=== PATIENT | male | born 1955 | race Caucasian/White ===

== ENCOUNTER 2017-03-06 21:02 | Observation (INO) | payer BC ==
--- NOTE | 2017-03-06 22:18 | PDOC ---
History of Present Illness - General History Source: Patient, Old Records Exam Limitations: No Limitations - History of Present Illness Initial Comments: The patient is a 61 year old male with a significant past medical history of NIDDM, HTN, AFIB, hypercholesterolemia, and HLD, who presents to the emergency department today with dizziness and double vision 2 hours ago. The patient states that at 7:30 he was leaving a wake when he began having double vision and dizziness secondary to his double vision. The patient described his double vision as vertical seeing one image on top of another. The patient states that his episode of double vision resolved after 45 seconds and he then went to dinner. The patient states that at the end of dinner he began to feel mildly lightheaded and decided to present. The patient notes that yesterday while babysitting he experienced left sided upper back and neck sharp, radiating pain secondary to a recent left rotator cuff injury. PCP: Dr. Juventino Leigh [phone] CARDIO: Dr. Isidoro Tomas [phone] PAST MEDICAL HISTORY: NIDDM, HTN, AFIB, and HLD PAST SURGICAL HISTORY: No significant history reported FAMILY HISTORY: Former smoker ALLERGIES: As per nursing notes MEDICATIONS: No new medications reported <Danie Weinberg - Last Filed: 03/06/17 23:29> <Shoshana George - Last Filed: 03/07/17 00:39> - General Chief Complaint: Lightheaded Stated Complaint: DIZZINESS Time Seen by Provider: 03/06/17 21:21 NIH Stroke Scale - Last Known Well Date/Time & Onset Date Last Known Well: 03/07/17 Time Last Known Well: 19:30 - Initial Evaluation Level of consciousness: Alert Ask patient the month and their age: Answers both correctly Ask patient to open & close eyes; make fist and let go: Obeys both correctly Best gaze (horizontal eye movement): Normal Visual field testing: No visual field loss Facial paresis (Show teeth/raise eyebrows/close eyes tight): Normal symmetrical movement Motor Function: Left Arm: Normal Motor Function: Right Arm: Normal (extends arm 90 (or 45) degrees for 10 seconds without drift Motor Function: Left Leg: Normal (extends leg 30 degrees for 5 seconds without drift) Motor Function: Right Leg: Normal (extends leg 30 degrees for 5 seconds without drift) Limb Ataxia: No ataxia Sensory(Use pinprick test arms,legs,trunk,face/side to side): Normal Best language (Describe picture, name items, read sentences): No Aphasia Dysarthria (read several words): Normal articulation Extinction and Inattention: No abnormality - Total Score NIH Stroke Scale Score: 0 <Shoshana George - Last Filed: 03/07/17 00:39> tPA Exclusion Checklist 0-3hr - Time Elapsed Date last known well: 03/07/17 Time last known well: 19:30 Elaspsed time: Day(s) and Hour(s) and -1133 Minutes - Thrombolytic Therapy Candidate Is the patient eligible for Thrombolytic Therapy?: No - Exclusion Criteria 0-3hr SBP greater than 185 or DBP greater than 110mmHg despite tx: No Recent IC/spinal surgery,head trauma or stroke w/in last 3mo: No Hx of previous IC hemorrhage, IC neoplasm, AVM or aneurysm: No Active internal bleeding: No Blding diathesis(low plt ct, inc PTT,INR>1.7 or use of NOAC): No Symptoms suggest subarachnoid hemorrhage: No CT demonstrates multilobar infarct(>1/3 cerebral hemiphere): No Arterial puncture at noncompressible site in previous 7 days: No Blood glucose concentration less than 50mg/dL (2.7mmol/L): No - Relative Exclusion Criteria 0-3h Life expectancy <1yr/severe co-morbid illness/SOFT MUD MOLDER on admit: No : No Patient/family refused: No Rapid improvement: Yes Stroke severity too mild: Yes Recent acute VA (w/in previous 3 months): No Seizure at onset with postictal residual neuro impairments: No Major surgery or serious trauma w/in previous 14 days: No - Ineligibility reason(s) Reasons No tPA given: See reason(s) noted above <Shoshana George - Last Filed: 03/07/17 00:39> Past History <Danie Weinberg - Last Filed: 03/06/17 23:29> - Past Medical History Anemia: No Asthma: No Cardiac Disorders: Yes (Paroxismal A-fib,) Diabetes: Yes HTN: Yes Hypercholesterolemia: Yes - Surgical History Abdominal Surgery: No Appendectomy: No Cardiac Surgery: No - Psycho/Social/Smoking Cessation Hx Anxiety: No Suicidal Ideation: No Smoking Status: No Smoking History: Never smoked Number of Cigarettes Smoked Daily: 0 Information on smoking cessation initiated: No Hx Alcohol Use: No Drug/Substance Use Hx: No Substance Use Type: None <Shoshana George - Last Filed: 03/07/17 00:39> - Past Medical History Allergies/Adverse Reactions: Allergies Allergy/AdvReac Type Severity Reaction Status Date / Time Penicillins Allergy Intermediate Verified 03/06/17 21:11 Home Medications: Ambulatory Orders Aspirin [ASA -] 81 mg PO DAILY 02/10/13 Atorvastatin Calcium [Lipitor] 10 mg PO DAILY 02/10/13 Liraglutide [Victoza] 1.2 mg SQ DAILY@0700 02/10/13 Metformin HCl [Glucophage] 1,000 mg PO BID 02/10/13 Quinapril HCl [Accupril] 10 mg PO DAILY 02/10/13 Testosterone [Axiron] 60 mg TD DAILY 08/12/15 Diltiazem HCl [Diltiazem 24Hr ER] 180 mg PO AM 03/06/17 Metoprolol Succinate [Toprol Xl] 50 mg PO HS 03/06/17 Ranitidine HCl [Zantac] 150 mg PO BID 03/06/17 Tadalafil [Cialis] 5 mg PO DAILY 03/06/17 Review of Systems - Review of Systems Able to Perform ROS?: Yes Comments:: GENERAL/CONSTITUTIONAL: No fever or chills. No weakness. HEAD, EYES, EARS, NOSE AND THROAT: (+) Double vision. No ear pain or discharge. No sore throat. GASTROINTESTINAL: No nausea, vomiting, diarrhea or constipation. GENITOURINARY: No dysuria, frequency, or change in urination. CARDIOVASCULAR: No chest pain or shortness of breath. RESPIRATORY: No cough, wheezing, or hemoptysis. MUSCULOSKELETAL: (+) Left upper back pain. Left sided neck pain. SKIN: No rash NEUROLOGIC: (+) Dizziness. No headache, vertigo, loss of consciousness, or change in strength/sensation. ENDOCRINE: No increased thirst. No abnormal weight change. HEMATOLOGIC/LYMPHATIC: No anemia, easy bleeding, or history of blood clots. ALLERGIC/IMMUNOLOGIC: No hives or skin allergy. <Danie Weinberg - Last Filed: 03/06/17 23:29> *Physical Exam - Vital Signs Last Vital Signs Temp Pulse Resp BP Pulse Ox 97.7 F 74 20 124/89 97 03/06/17 21:12 03/06/17 21:12 03/06/17 21:12 03/06/17 21:12 03/06/17 21:12 - Physical Exam Comments: GENERAL: Awake, alert, and fully oriented, in no acute distress HEAD: No signs of trauma EYES: PERRLA, EOMI, sclera anicteric, conjunctiva clear. Extraocular movements intact ENT: Auricles normal inspection, nares patent, Moist mucosa NECK: Normal ROM, supple, no lymphadenopathy, JVD, or masses LUNGS: Breath sounds equal, clear to auscultation bilaterally. No wheezes, and no crackles HEART: Regular rate and rhythm, normal S1 and S2, no murmurs, rubs or gallops ABDOMEN: Soft, nontender, normoactive bowel sounds. No guarding, no rebound. No masses EXTREMITIES: Normal range of motion, no edema. No clubbing or cyanosis. No cords, erythema, or tenderness NEUROLOGICAL: Normal speech. 5/5 strength in all extremities. Cranial nerves intact. SKIN: Warm, Dry, normal turgor, no rashes or lesions noted. <Danie Weinberg - Last Filed: 03/06/17 23:29> - Vital Signs Last Vital Signs Temp Pulse Resp BP Pulse Ox 97.7 F 74 20 124/89 97 03/06/17 21:12 03/06/17 21:12 03/06/17 21:12 03/06/17 21:12 03/06/17 21:12 <Shoshana George - Last Filed: 03/07/17 00:39> Heart Score/ECG Review #1 General ECG Interpretation: Sinus Rhythm, Normal Rate (74), Normal Intervals, No acute ischemic changes Compared to previous ECG there are: No significant change (comparison 08/12/15) 03/06/17 22:48 RBB old, normal axis. TWI v1 - V2. <Shoshana George - Last Filed: 03/07/17 00:39> ED Treatment Course - LABORATORY CBC & Chemistry Diagram: 03/06/17 22:08 03/06/17 22:08 - RADIOLOGY Radiograph Interpretation: EXAM#: TYPE/EXAM: RESULT: [id number] CT/HEAD CT (STROKE) Diplopia. Rule out stroke. CT scan of the brain without intravenous contrast No prior is available for comparison. There is mild volume loss mainly in the high convexity. The ventricles and basal cisterns appear unremarkable. No mass lesion, gross acute infarct or intracranial hemorrhage is identified. There is no shift of the midline structures. The craniocervical junction appears unremarkable. Calvarium is intact. Mild deviation of the nasal septum to the left. Impression: Mild volume loss mainly in the high convexity without gross evidence of acute intracranial pathology. Correlate clinically to determine further evaluation and follow-up. Reported By: Sim Brady MD 03/06/170 EXAM#: TYPE/EXAM: RESULT: [id number] RAD/CHEST X-RAY PORTABLE* Change in mental status. Rule out aspiration/infection Portable chest x-ray AP sitting. Since , the cardiac silhouette remains within normal limits in size. The lung is clear. Mild elevation of the right hemidiaphragm. Mediastinum is osseous osseous structures appear intact Impression: No acute cardiopulmonary disease is present Reported By: Sim Brady MD 03/06/17 3146 <Danie Weinberg - Last Filed: 03/06/17 23:29> - LABORATORY CBC & Chemistry Diagram: 03/06/17 22:08 03/06/17 22:08 - RADIOLOGY Radiology Studies Ordered: Category Date Time Status HEAD CT (STROKE) [CT] Stat CT Scan 03/06/17 21:46 Taken CHEST X-RAY PORTABLE* [RAD] Stat Radiology 03/06/17 21:47 Ordered <Shoshana George - Last Filed: 03/07/17 00:39> Medical Decision Making - Medical Decision Making 03/06/17 22:[address] Rodriguez [phone]. Case discussed. 03/06/17 22:[address] Anatoliy mello ([phone]. Unable to reach call center 03/06/17 23:[address] Sheikh mello, Dr. Martinez is documentation supervisor. Awaiting call back. 03/06/17 23:[address] Anatoliy mello. Dr. Marcelo is documentation supervisor. <Danie Weinberg - Last Filed: 03/06/17 23:29> - Medical Decision Making 03/06/17 22:10 61 yo M with ho HTN, afib, HlD, DM here with c/o episode of double vision and feeling lightheaded. pt was leaving a wake, around 7:30, lasted around 45 seconds then resolved. later was eating dinner, and felt lightheaded. denies vertigo, no sense of imbalance. no vision change.s no cp or sob. yesterday had episdoe of left shoulder pain ,back pain lasted briefly then spontaneously resolved. no numbness or tingling. no leg swelling. no current chest pain. no change to speech, sxs completely resolve. no prior mi or cva. father with [facility] in 60's. pt had a stress test 1 yr ago. on exam awake alert, facies and pupils symmetric vision normal. visual victor intact. EOMI, CN intact. strength 5/5 throught. intact sensation to light tough. speech clear. NIH stroke scale zero. cardiac and lung exam normal. symmetric pulses. abd soft no pulsatile mass. plan: differential: diplopia from palsy, cva, electrolyte abnormality, mi, dysrythmia, plna ekg ct head. will call code keyes/ stroke. although not TPA candidate as sxs completely resolved. will d/w nuerology 03/06/17 23:32 d/w dr fuentes, ( covering for dr levine) who states admi to hospitalist. paged dr martinez covering for dr. rosario, no call back . will admit to tele hopsitalist. d/w nuerologist who recommend mri/ mra. <Shoshana George - Last Filed: 03/07/17 00:39> *DC/Admit/Observation/Transfer - Attestations Scribe Attestion: Documentation prepared by Danie Weinberg, acting as biomedical engineering director for Shoshana George MD. <Danie Weinberg - Last Filed: 03/06/17 23:29> - Discharge Dispostion Admit: Yes <Shoshana George - Last Filed: 03/07/17 00:39> Diagnosis at time of Disposition: Diplopia - Referrals Referrals: Juventino Leigh MD [Primary Care Provider] -
[2017-03-06 22:26] LABS: BASOPHIL 0.7 % (0-2.0); EOSINOPHIL 2.4 % (0-4.5); MCHC 33.3 g/dl (32.0-35.9); MEAN CELL VOLUME 93.1 fl (80-96); NEUTROPHILS 68.8 % (42.8-82.8); PLATELET COUNT 189 K/MM3 (134-434); WHITE BLOOD COUNT 8.8 K/mm3 (4.0-10.0)
[2017-03-06 22:36] LABS: INR 1.2 (0.82-1.09); PROTHROMBIN TIME (PATIENT) 13.2 SEC (9.98-11.88)
[2017-03-06] MEDS ORDERED: ASPIRIN 81 MG CHEWABLE TABLETS PO ONE (22:36)
[2017-03-06 22:55] LABS: ANION GAP 9 (8-16); BILIRUBIN,TOTAL 0.5 mg/dL (0.2-1.0); CALCIUM 9.8 mg/dL (8.5-10.1); CO2 27 mmol/L (21-32); COCKROFT - GAULT 124.42; CREATININE 0.9 mg/dL (0.7-1.3); GLUCOSE,RANDOM 143 mg/dL (74-106); SGOT/AST 16 U/L (15-37); SGPT/ALT 19 U/L (12-78); TOT PROT 6.8 g/dl (6.4-8.2)
[2017-03-06 22:57] LABS: ALK PHOS 65 U/L (45-117); TROPONIN I 0.02 ng/ml (0.00-0.05)
[2017-03-06] MEDS ORDERED: ASPIRIN 81 MG CHEWABLE TABLETS ONE (22:57)
--- NOTE | 2017-03-06 23:54 | PN ---
<Hailey Capone - Last Filed: 03/06/17 23:53> Teaching Attending Note Name of Resident: Kayla Chappellhouston <Amna Baker - Last Filed: 03/07/17 01:28> Teaching Attending Note ATTENDING PHYSICIAN STATEMENT I saw and evaluated the patient. I reviewed the resident's note and discussed the case with the resident. I agree with the resident's findings and plan as documented. SUBJECTIVE: 61 yo M presents with dizziness and double vision. Patient reports walking out his front door and feeling disoriented and experiencing double vision for 45 seconds. Patient states he is studying for an exam and spends 4 hours at a time looking at a computer screen. Patient reports proceeding to go to dinner started to feel lightheaded. Upon evaluation pt states he feels asymptomatic. Pt notes he is chronically congested. Patient reports using afrin before bed to decongest. Pt denies trauma to the head, ringing to the ears, decreased hearing , fevers, chills. PMHx: NIDDM, HTN, AFIB, HLD, and HLD OBJECTIVE: Last Vital Signs Temp Pulse Resp BP Pulse Ox 97.7 F 72 16 118/62 100 03/07/17 00:29 03/07/17 00:29 03/07/17 00:29 03/07/17 00:29 03/07/17 01:11 GENERAL: Awake, alert, and fully oriented, in no acute distress HEENT: Atraumatic. PERRLA, EOMI. Moist mucosa. No JVD LUNGS: No distress, speaks full sentences, clear to auscultation bilaterally HEART: Regular rate and rhythm, normal S1 and S2, no murmurs, rubs or gallops, peripheral pulses normal and equal bilaterally. ABDOMEN: Soft, nontender, normoactive bowel sounds. No guarding, no rebound. No masses EXTREMITIES: Normal inspection, Normal range of motion, no edema. No clubbing or Cyanosis. NEUROLOGICAL: Cranial nerves II through XII grossly intact. Normal speech, gait not assessed, no focal sensorimotor deficits SKIN: Warm, Dry, normal turgor, no rashes or lesions noted. CBCD WBC 8.8 K/mm3 (4.0-10.0) D 03/06/17 22:08 RBC 4.21 M/mm3 (4.00-5.60) 03/06/17 22:08 Hgb 13.1 GM/dL (11.7-16.9) 03/06/17 22:08 Hct 39.2 % (35.4-49) 03/06/17 22:08 MCV 93.1 fl (80-96) 03/06/17 22:08 MCHC 33.3 g/dl (32.0-35.9) 03/06/17 22:08 RDW 13.0 % (11.9-15.9) 03/06/17 22:08 Plt Count 189 K/MM3 (134-434) 03/06/17 22:08 MPV 8.0 fl (7.5-11.1) 03/06/17 22:08 CMP Sodium 141 mmol/L (136-145) 03/06/17 22:08 Potassium 4.3 mmol/L (3.5-5.1) 03/06/17 22:08 Chloride 105 mmol/L (98-107) 03/06/17 22:08 Carbon Dioxide 27 mmol/L (21-32) 03/06/17 22:08 Anion Gap 9 (8-16) 03/06/17 22:08 BUN 23 mg/dL (7-18) H D 03/06/17 22:08 Creatinine 0.9 mg/dL (0.7-1.3) D 03/06/17 22:08 Creat Clearance w eGFR > 60 (>60) 03/06/17 22:08 Calcium 9.8 mg/dL (8.5-10.1) 03/06/17 22:08 Total Bilirubin 0.5 mg/dL (0.2-1.0) D 03/06/17 22:08 AST 16 U/L (15-37) D 03/06/17 22:08 ALT 19 U/L (12-78) 03/06/17 22:08 Alkaline Phosphatase 65 U/L (45-117) 03/06/17 22:08 Total Protein 6.8 g/dl (6.4-8.2) 03/06/17 22:08 Albumin 4.0 g/dl (3.4-5.0) 03/06/17 22:08 ASSESSMENT AND PLAN: Diplopia r/o CVA/TIA r/o Cranial nerve palsy - Aspirin 325 -Opthamology consult -Neurology consult -Hgb A1C -Lipid panel -TSH -diabetic diet -sliding scale -MRI pending Neuro consult Documentation is prepared by Amna Baker acting as center medical and lab director for Hailey Capone M.D.
--- NOTE | 2017-03-07 01:08 | HP ---
CHIEF COMPLAINT: Blurry vision PCP: Dr. Leigh HISTORY OF PRESENT ILLNESS: 61 year old male with a significant PMHx DM and paroxysmal atrial fibrillation, presents to the emergency room with blurry vision. Patient states that earlier this evening he was walking out of a when he become dizzy and saw double of his and son who were standing in front of him. Patient states that this episode lasted less than one minute. He did not have any associated symptoms, denies chest pain, shortness of breath, palpitations, LOC. A few hours later, patient ate dinner, and felt a little dizzy, which provoked him to come to the ER. Patient states that earlier that day he was fishing all day, he had three beers and a sandwich. Patient states that he had two previous episodes of blurry vision while in [place] back in September and one in December while driving. He denies floaters, curtain pulled over eyes, headaches. He also states that he has been at the computer 3-4 hrs at a time some days, but not everyday. He has not visited optho in over one year. 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 Patient follows saw operator for diabetes, last known hemoglobin A1C 6.6 few months ago. He does not check his sugars daily. He has not checked his sugars in a few days. OF note patient also complained of left neck pain last night that resolved , he has HX of rotator cuff tear. In the ER, stroke protocol was initiated. Head CT was negative for acute pathology. Aspirin given. First cardiac profile was negative. EKG unchanged form previous, NSR, chronic RBBB. CXR, no acute/cardio pulmonary pathology. Recent Travel: no PAST MEDICAL HISTORY: Diabetes Mellitus, Atrial fibrillation, HTN, HLD PAST SURGICAL HISTORY: Social History: Smoking:quit years ago Alcohol:social Drugs: no Family History: Allergies Penicillins Allergy (Intermediate, Verified 03/06/17 21:11) HOME MEDICATIONS: Home Medications Medication Instructions Recorded Aspirin [ASA -] 81 mg PO DAILY 02/10/13 Atorvastatin Calcium [Lipitor] 10 mg PO DAILY 02/10/13 Liraglutide [Victoza] 1.2 mg SQ DAILY@0700 02/10/13 Metformin HCl [Glucophage] 1,000 mg PO BID 02/10/13 Quinapril HCl [Accupril] 10 mg PO DAILY 02/10/13 Testosterone [Axiron] 60 mg TD DAILY 08/12/15 Diltiazem HCl [Diltiazem 24Hr ER] 180 mg PO AM 03/06/17 Metoprolol Succinate [Toprol Xl] 50 mg PO HS 03/06/17 Ranitidine HCl [Zantac] 150 mg PO BID 03/06/17 Tadalafil [Cialis] 5 mg PO DAILY 03/06/17 REVIEW OF SYSTEMS CONSTITUTIONAL: Absent: fever, chills, diaphoresis, generalized weakness, malaise, loss of appetite, weight change HEENT: Positive:visual changes, blurry vision, double vision Absent: rhinorrhea, nasal congestion, throat pain, throat swelling, difficulty swallowing, mouth swelling, ear pain, eye pain, CARDIOVASCULAR: Absent: chest pain, syncope, palpitations, irregular heart rate, lightheadedness , peripheral edema RESPIRATORY: Absent: cough, shortness of breath, dyspnea with exertion, orthopnea, wheezing, stridor, hemoptysis GASTROINTESTINAL: Absent: abdominal pain, abdominal distension, nausea, vomiting, diarrhea, constipation, melena, hematochezia GENITOURINARY: Absent: dysuria, frequency, urgency, hesitancy, hematuria, flank pain, genital pain MUSCULOSKELETAL: POsitive: back pain/neck pain Absent: myalgia, arthralgia, joint swelling, SKIN: Absent: rash, itching, pallor HEMATOLOGIC/IMMUNOLOGIC: Absent: easy bleeding, easy bruising, lymphadenopathy, frequent infections ENDOCRINE: Absent: unexplained weight gain, unexplained weight loss, heat intolerance, cold intolerance NEUROLOGIC: Postive : dizziness Absent: headache, focal weakness or paresthesias, , unsteady gait, seizure, mental status changes, bladder or bowel incontinence PSYCHIATRIC: Absent: anxiety, depression, suicidal or homicidal ideation, hallucinations. PHYSICAL EXAMINATION Vital Signs - 24 hr 03/06/17 03/07/17 21:12 00:29 Temperature 97.7 F 97.7 F Pulse Rate 74 Pulse Rate [ 72 Apical] Respiratory 20 16 Rate Blood Pressure 124/89 Blood Pressure 118/62 [Left] O2 Sat by Pulse 97 100 Oximetry (%) GENERAL: Awake, alert, and fully oriented, in no acute distress. HEAD: Normal with no signs of trauma. EYES: Pupils equal, round and reactive to light, extraocular movements intact, sclera anicteric, conjunctiva clear. No lid lag. EARS, NOSE, THROAT: Ears normal, nares patent, oropharynx clear without exudates. Moist mucous membranes. NECK: Normal range of motion, supple without lymphadenopathy, JVD, or masses. LUNGS: Breath sounds equal, clear to auscultation bilaterally. No wheezes, and no crackles. No accessory muscle use. HEART: Regular rate and rhythm, normal S1 and S2 without murmur, rub or gallop. ABDOMEN: Soft, nontender, not distended, normoactive bowel sounds, no guarding, no rebound, no masses. No hepatomegaly or splenomegaly. MUSCULOSKELETAL: Normal range of motion at all joints. No bony deformities or tenderness. No CVA tenderness. UPPER EXTREMITIES: 2+ pulses, warm, well-perfused. No cyanosis. No clubbing. No peripheral edema. LOWER EXTREMITIES: 2+ pulses, warm, well-perfused. No calf tenderness. No peripheral edema. NEUROLOGICAL: Cranial nerves II-XII intact. Normal speech. Normal gait. PSYCHIATRIC: Cooperative. Good eye contact. Appropriate mood and affect. SKIN: Warm, dry, normal turgor, no rashes or lesions noted, normal capillary refill. CBCD WBC 8.8 K/mm3 (4.0-10.0) D 03/06/17 22:08 RBC 4.21 M/mm3 (4.00-5.60) 03/06/17 22:08 Hgb 13.1 GM/dL (11.7-16.9) 03/06/17 22:08 Hct 39.2 % (35.4-49) 03/06/17 22:08 MCV 93.1 fl (80-96) 03/06/17 22:08 MCHC 33.3 g/dl (32.0-35.9) 03/06/17 22:08 RDW 13.0 % (11.9-15.9) 03/06/17 22:08 Plt Count 189 K/MM3 (134-434) 03/06/17 22:08 MPV 8.0 fl (7.5-11.1) 03/06/17 22:08 CMP Sodium 141 mmol/L (136-145) 03/06/17 22:08 Potassium 4.3 mmol/L (3.5-5.1) 03/06/17 22:08 Chloride 105 mmol/L (98-107) 03/06/17 22:08 Carbon Dioxide 27 mmol/L (21-32) 03/06/17 22:08 Anion Gap 9 (8-16) 03/06/17 22:08 BUN 23 mg/dL (7-18) H D 03/06/17 22:08 Creatinine 0.9 mg/dL (0.7-1.3) D 03/06/17 22:08 Creat Clearance w eGFR > 60 (>60) 03/06/17 22:08 Random Glucose 143 mg/dL (74-106) H D 03/06/17 22:08 Calcium 9.8 mg/dL (8.5-10.1) 03/06/17 22:08 Total Bilirubin 0.5 mg/dL (0.2-1.0) D 03/06/17 22:08 AST 16 U/L (15-37) D 03/06/17 22:08 ALT 19 U/L (12-78) 03/06/17 22:08 Alkaline Phosphatase 65 U/L (45-117) 03/06/17 22:08 Total Protein 6.8 g/dl (6.4-8.2) 03/06/17 22:08 Albumin 4.0 g/dl (3.4-5.0) 03/06/17 22:08 CARDIAC ENZYMES Creatine Kinase 55 IU/L (39-308) 03/06/17 22:08 Troponin I 0.02 ng/ml (0.00-0.05) 03/06/17 22:08 Current Medications Generic Name Dose Route Start Last Admin Trade Name Homero PRN Reason Stop Dose Admin Aspirin 81 mg 03/07/17 10:00 Asa - PO DAILY [facility] Atorvastatin Calcium 10 mg 03/07/17 22:00 Lipitor - PO HS JEFF Diltiazem HCl 180 mg 03/07/17 10:00 Cardizem Cd - PO DAILY [facility] Heparin Sodium (Porcine) 5,000 unit 03/07/17 02:00 03/07/17 01:28 Heparin - SQ 5,000 unit Q8H-IV JEFF Administration Insulin Aspart 1 vial 03/07/17 07:00 Novolog Vial Sliding Scale - SQ ACHS [facility] Protocol Liraglutide 1.2 mg 03/07/17 07:00 Victoza - SQ DAILY@0700 [facility] Metoprolol Succinate 50 mg 03/07/17 22:00 Toprol Xl - PO HS JEFF Quinapril HCl 10 mg 03/07/17 10:00 Accupril - PO DAILY JEFF Ranitidine HCl 150 mg 03/07/17 10:00 Zantac - PO BID [facility] ASSESSMENT/PLAN: 61 year old male with a significant past medical history of NIDDM, paroxysmal atrial fibrillation, presents to the ER with diplopia and dizziness. Patient admitted to obs tele r/o stroke/tia. #r/o stroke /tia -stoke protocol activated -stat head CT negative -ASA 324mg given -continue aspirin 81mg po daily -continue statin -MRA/MRI brain -carotid Doppler -echo -TSH -lipid panel -neurology consulted #diplopia: -multiple etiologies; possible TIA; could be secondary to computer; diabetes, age; ? -appreciate ophthalmology consult #paroxysmal a fib -cardizem 180mg po daily -currently in NSR; rate controlled #diabetes mellitus type II: -Insulin SS; BG achs -hemoglobin A1c #HTN -metoprolol succinate 50mg po HS #HLD -Lipitor 10mg po qd #GERD: -zantac #BPH: -cont home meds FEN: Fluids: po Electrolytes: WNL Diet: Diabetic diet VTE prophylaxis: heparin sq Disposition: obs tel/ f/u studies/ appreciate consults Problem List - Problem (1) Diplopia Code(s): H53.2 - DIPLOPIA (2) Hyperlipidemia Code(s): E78.5 - HYPERLIPIDEMIA, UNSPECIFIED Qualifiers: Hyperlipidemia type: Pure hypercholesterolemia (3) Hypertension Code(s): I10 - ESSENTIAL (PRIMARY) HYPERTENSION Qualifiers: Hypertension type: essential hypertension Qualified Code(s): I10 - Essential (primary) hypertension (4) Near syncope Code(s): R55 - SYNCOPE AND COLLAPSE (5) Paroxysmal atrial fibrillation Code(s): I48.0 - PAROXYSMAL ATRIAL FIBRILLATION (6) Type 2 diabetes mellitus Code(s): E11.9 - TYPE 2 DIABETES MELLITUS WITHOUT COMPLICATIONS Qualifiers: Diabetes mellitus complication status: without complication (7) BPH (benign prostatic hyperplasia) Code(s): N40.0 - BENIGN PROSTATIC HYPERPLASIA WITHOUT LOWER URINRY TRACT SYMP Visit type - Emergency Visit Emergency Visit: Yes ED Registration Date: 03/07/17 Care time: The patient presented to the Emergency Department on the above date and was hospitalized for further evaluation of their emergent condition. - New Patient This patient is new to me today: Yes Date on this admission: 03/07/17 - Critical Care Critical Care patient: No
[2017-03-07] MEDS: HEPARIN NA (PORCINE) 5,000 UNITS/ML 1ML VIAL SQ SCH ×3 (01:28→17:38)
[2017-03-07 05:25] VITALS: BMI 30.2
[2017-03-07] MEDS: INSULIN SLIDING SCALE (NOVOLOG) 1 VIAL SQ SCH ×4 (06:54→22:11)
[2017-03-07] MEDS ORDERED: LIRAGLUTIDE 0.6 MG/0.1 ML PEN.INJCTR SQ SCH (07:00)
[2017-03-07] MEDS: QUINAPRIL HCL 10 MG TABLET (FP) PO SCH (09:55)
[2017-03-07] MEDS: RANITIDINE HCL 150 MG TABLET (FP) PO SCH ×2 (09:56→22:10)
[2017-03-07] MEDS: ASPIRIN 81 MG CHEWABLE TABLETS PO SCH (09:56)
--- NOTE | 2017-03-07 10:01 | EKG ---
Test Reason : Blood Pressure : / mmHG Vent. Rate : 074 BPM Atrial Rate : 074 BPM P-R Int : 172 ms QRS Dur : 144 ms QT Int : 408 ms P-R-T Axes : 046 -10 018 degrees QTc Int : 452 ms NORMAL SINUS RHYTHM RIGHT BUNDLE BRANCH BLOCK ABNORMAL ECG WHEN COMPARED WITH ECG OF 12-AUG-2015 10:34, PREMATURE SUPRAVENTRICULAR COMPLEXES ARE NO LONGER PRESENT Confirmed by ANDREY OLIVO MD ([id number]) on 03/07/2017 10:01:39 AM Referred By: Confirmed By:ANDREY OLIVO MD
--- NOTE | 2017-03-07 12:42 | PN ---
Teaching Attending Note Name of Resident: Caleb Nath ATTENDING PHYSICIAN STATEMENT I saw and evaluated the patient. I reviewed the resident's note and discussed the case with the resident. I agree with the resident's findings and plan as documented. SUBJECTIVE: Patient has no complaints. No further visual changes. OBJECTIVE: Vital Signs Period Temp Pulse Resp BP Sys/Smith Pulse Ox Last 24 Hr 97.7 F-98.1 F 70-74 16-20 108-124/62-89 97-100 HEART: S1 S2, RRR LUNGS: Clear ABDOMEN: Soft, non-tender, non-distended, normal BS EXTREMITIES: No edema NEUROLOGICAL: Non-focal ASSESSMENT AND PLAN: This is a 61 year old man with a history of type 2 DM, PAF, HTN, hyperlipidemia , GERD, BPH who presented to the ER with diplopia and dizziness. 1. Diplopia, possible TIA - Awaiting neurology, cardiology, ophthalmology evaluations - Carotid dopplers negative - Echo pending - MRI/MRA of brain pending 2. Paroxysmal atrial fibrillation - Currently in SR - Continue Cardizem CD 3. Type 2 diabetes mellitus - Continue Victoza, Novolog sliding scale 4. HTN - Continue Cardizem CD, Toprol XL, Accupril 5. Hyperlipidemia - Continue Lipitor 6. GERD - Continue Zantac 7. BPH
--- NOTE | 2017-03-07 12:59 | PN ---
Physical Exam: SUBJECTIVE: Stated his vision has been normal since admission. No other complaints. OBJECTIVE: Vital Signs Period Temp Pulse Resp BP Sys/Smith Pulse Ox Last 24 Hr 97.7 F-98.1 F 70-72 16-20 108-116/68-70 100-100 GENERAL: AAOx3, in no acute distress. HEAD: AC, NT EYES: PERRLA, sclera anicteric, conjunctiva clear. No ptosis. ENT: oropharynx clear without exudates, moist mucous membranes. LUNGS: CTAB HEART: RRR, S1, S2 without murmur, rub or gallop. ABDOMEN: Soft, nontender, nondistended, normoactive bowel sounds, no guarding, no rebound, no hepatosplenomegaly, no masses. NEUROLOGICAL: Cranial nerves II through XII grossly intact. Normal speech, gait not observed. CBCD WBC 8.8 K/mm3 (4.0-10.0) D 03/06/17 22:08 RBC 4.21 M/mm3 (4.00-5.60) 03/06/17 22:08 Hgb 13.1 GM/dL (11.7-16.9) 03/06/17 22:08 Hct 39.2 % (35.4-49) 03/06/17 22:08 MCV 93.1 fl (80-96) 03/06/17 22:08 MCHC 33.3 g/dl (32.0-35.9) 03/06/17 22:08 RDW 13.0 % (11.9-15.9) 03/06/17 22:08 Plt Count 189 K/MM3 (134-434) 03/06/17 22:08 MPV 8.0 fl (7.5-11.1) 03/06/17 22:08 CMP Sodium 141 mmol/L (136-145) 03/06/17 22:08 Potassium 4.3 mmol/L (3.5-5.1) 03/06/17 22:08 Chloride 105 mmol/L (98-107) 03/06/17 22:08 Carbon Dioxide 27 mmol/L (21-32) 03/06/17 22:08 Anion Gap 9 (8-16) 03/06/17 22:08 BUN 23 mg/dL (7-18) H D 03/06/17 22:08 Creatinine 0.9 mg/dL (0.7-1.3) D 03/06/17 22:08 Creat Clearance w eGFR > 60 (>60) 03/06/17 22:08 Calcium 9.8 mg/dL (8.5-10.1) 03/06/17 22:08 Total Bilirubin 0.5 mg/dL (0.2-1.0) D 03/06/17 22:08 AST 16 U/L (15-37) D 03/06/17 22:08 ALT 19 U/L (12-78) 03/06/17 22:08 Alkaline Phosphatase 65 U/L (45-117) 03/06/17 22:08 Total Protein 6.8 g/dl (6.4-8.2) 03/06/17 22:08 Albumin 4.0 g/dl (3.4-5.0) 03/06/17 22:08 Active Medications Generic Name Dose Route Start Last Admin Trade Name Freq PRN Reason Stop Dose Admin Aspirin 81 mg 03/07/17 10:00 03/07/17 09:56 Asa - PO 81 mg DAILY JEFF Administration Atorvastatin Calcium 10 mg 03/07/17 22:00 Lipitor - PO HS JEFF Diltiazem HCl 180 mg 03/07/17 10:00 03/07/17 09:56 Cardizem Cd - PO 180 mg DAILY JEFF Administration Heparin Sodium (Porcine) 5,000 unit 03/07/17 02:00 03/07/17 09:56 Heparin - SQ 5,000 unit Q8H-IV JEFF Administration Insulin Aspart 1 vial 03/07/17 07:00 03/07/17 12:11 Novolog Vial Sliding Scale - SQ Not Given ACHS [facility] Protocol Liraglutide 1.2 mg 03/07/17 07:00 03/07/17 06:55 Victoza - SQ Not Given DAILY@0700 JEFF Metoprolol Succinate 50 mg 03/07/17 22:00 Toprol Xl - PO HS JEFF Quinapril HCl 10 mg 03/07/17 10:00 03/07/17 09:55 Accupril - PO 10 mg DAILY JEFF Administration Ranitidine HCl 150 mg 03/07/17 10:00 03/07/17 09:56 Zantac - PO 150 mg BID JEFF Administration IMAGING Carotid doppler on 6/9: no stenosis CXR on 03/06: no acute pathology CT head on 03/06: no stroke ASSESSMENT/PLAN: 61 yo M h/o NIDDM and paroxysmal atrial fibrillation admitted to telemetry for double vision. Diplopia - Stroke vs. eye strain vs. diabetic retinopathy * Stroke work up negative so far * Pending ECHO and MRI * Pending TSH and lipid panel * Cont. statin and asa * Ophthalmology follow up as outpatient A-fib, paroxysmal - Rate and rhythm controlled - Cont. asa and cardizem NIDDM - BGM and sliding scale - Pending a1c HTN - Controlled on metoprolol HLD - Cont. lipitor - Pending lipid panel but can be done as outpatient FEN - IVF not indicated - Lytes normal - DM diet Prophylaxis - DVT: heparin SQ - GI: not indicated Dispo - Discharge once seen by neurology - MRI brain, lipid panel, A1C can be done as outpatient Visit type - Emergency Visit Emergency Visit: No - New Patient This patient is new to me today: No - Critical Care Critical Care patient: No
--- NOTE | 2017-03-07 13:46 | CON.CARD ---
Consult Consult Specialty:: Cardiology Referred by:: Juventino Leigh MD Reason for Consultation:: PAF->SR - History of Present Illness Chief Complaint: Diplopia, dizziness History of Present Illness: This is a 61-year-old male with a history of an NIDDM, HTN, HLD, vagally- mediated PAF->SR [id number], PAC presented for dizziness and diplopia ( unclear whether monocular or binocular) since resolved. He denies chest pain, dyspnea, palpitations, true syncope, orthopnea, PND or LE edema, currently asymptomatic. PCP: Dr. Leigh Livestock Breeder: Dr. Tomas - History Source History Provided By: Patient Limitations to Obtaining History: No Limitations - Past Medical History Cardio/Vascular: Yes: AFIB, HTN, Hyperlipdemia Endocrine: Yes: Diabetes Mellitus - Alcohol/Substance Use Hx Alcohol Use: No History of Substance Use: reports: None - Smoking History Smoking history: Former smoker Have you smoked in the past 12 months: No Aproximately how many cigarettes per day: 0 If you are a former smoker, when did you quit?: 30 years ago - Social History History of Recent Travel: No Home Medications - Allergies Allergies/Adverse Reactions: Allergies Allergy/AdvReac Type Severity Reaction Status Date / Time Penicillins Allergy Intermediate Verified 03/06/17 21:11 - Home Medications Home Medications: Ambulatory Orders Aspirin [ASA -] 81 mg PO DAILY 02/10/13 Atorvastatin Calcium [Lipitor] 10 mg PO DAILY 02/10/13 Liraglutide [Victoza] 1.2 mg SQ DAILY@0700 02/10/13 Metformin HCl [Glucophage] 1,000 mg PO BID 02/10/13 Quinapril HCl [Accupril] 10 mg PO DAILY 02/10/13 Testosterone [Axiron] 60 mg TD DAILY 08/12/15 Diltiazem HCl [Diltiazem 24Hr ER] 180 mg PO AM 03/06/17 Metoprolol Succinate [Toprol Xl] 50 mg PO HS 03/06/17 Ranitidine HCl [Zantac] 150 mg PO BID 03/06/17 Tadalafil [Cialis] 5 mg PO DAILY 03/06/17 Review of Systems - Review of Systems Eyes: reports: Double Vision Neurological: reports: Dizziness Vital Signs: Vital Signs Temperature 98.1 F 03/07/17 10:00 Pulse Rate 70 03/07/17 10:00 Respiratory Rate 20 03/07/17 10:00 Blood Pressure 108/68 03/07/17 10:00 O2 Sat by Pulse Oximetry (%) 100 03/07/17 01:30 Constitutional: Yes: No Distress, Calm Neck: Yes: Supple Respiratory: Yes: Regular, CTA Bilaterally Gastrointestinal: Yes: Normal Bowel Sounds, Soft Cardiovascular: Yes: Regular Rate and Rhythm JVD: No Carotid Bruit: No Heart Sounds: Yes: S1, S2 Edema: No - Other Data Labs, Other Data: INR, PTT INR 1.20 (0.82-1.09) H 03/06/17 22:08 NSR RBBB similar to previous Tele: NSR, no recurrence PAF Imaging - Results Chest X-ray: Report Reviewed Problem List - Problems (1) Diplopia Code(s): H53.2 - DIPLOPIA (2) Hyperlipidemia Code(s): E78.5 - HYPERLIPIDEMIA, UNSPECIFIED Qualifiers: Hyperlipidemia type: pure hypercholesterolemia Qualified Code(s): E78.00 - Pure hypercholesterolemia, unspecified; E78.0 - Pure hypercholesterolemia (3) Hypertension Code(s): I10 - ESSENTIAL (PRIMARY) HYPERTENSION Qualifiers: Hypertension type: essential hypertension Qualified Code(s): I10 - Essential (primary) hypertension (4) Paroxysmal atrial fibrillation Code(s): I48.0 - PAROXYSMAL ATRIAL FIBRILLATION (5) Premature atrial beats Code(s): I49.1 - ATRIAL PREMATURE DEPOLARIZATION (6) Type 2 diabetes mellitus Code(s): E11.9 - TYPE 2 DIABETES MELLITUS WITHOUT COMPLICATIONS Qualifiers: Diabetes mellitus complication status: without complication Diabetes mellitus usp insulin use: without bed bug exterminator use Qualified Code(s): E11.9 - Type 2 diabetes mellitus without complications Assessment/Plan 03/07/2017 Echo: Normal biventricular size and fxn, mild TR 1. Diplopia, light-headedness, r/o TIA 2. H/o premature atrial contraction, PAF->SR 3. Hypertension 4. Type 2 DM 5. Hyperlipidemia P:1. Continue Cardizem CD 180 qd, Toprol 50 qhs, ASA 81 qd, Lipitor 10 qd, Accupril 10 qd, may need NOAC if cerebrovascular disease is confirmed 2. Await neuro input 3. Thank you for consultative opportunity
--- NOTE | 2017-03-07 16:24 | CONSULT ---
Consult - text type - Consultation Consultation Note: Ophthalmology consult 61 year old male c/o 30-second episode of vertical diplopia yesterday along with dizziness. Pt reports prior episodes of dizziness due to congestion from seasonal allergies, but has never had diplopia vision, near with reading glasses OD 20/50+2, OS 20/50+2, OU 20/30 P3/3 --> 3+/3+, no APD EOM full OU ortho at distance, no evidence of strabismus on exam PLE LLL flat S/C no injection K clear OU A/C formed I round Imp/Plan Transient episode of diplopia with no findings of EOM palsy or strabismus on bedside exam today. Head CT with no abnormalities. Advised outpatient follow up once discharged. Continue current mgmt
--- NOTE | 2017-03-07 18:39 | CON.NEURO ---
Consult - Past Medical History Cardio/Vascular: Yes: AFIB, HTN, Hyperlipdemia Endocrine: Yes: Diabetes Mellitus - Alcohol/Substance Use Hx Alcohol Use: No History of Substance Use: reports: None - Smoking History Smoking history: Former smoker Have you smoked in the past 12 months: No Aproximately how many cigarettes per day: 0 If you are a former smoker, when did you quit?: 30 years ago - Social History History of Recent Travel: No Home Medications - Allergies Allergies/Adverse Reactions: Allergies Allergy/AdvReac Type Severity Reaction Status Date / Time Penicillins Allergy Intermediate Verified 03/06/17 21:11 - Home Medications Home Medications: Ambulatory Orders Aspirin [ASA -] 81 mg PO DAILY 02/10/13 Atorvastatin Calcium [Lipitor] 10 mg PO DAILY 02/10/13 Liraglutide [Victoza -] 1.2 mg SQ DAILY@0700 02/10/13 Metformin HCl [Glucophage] 1,000 mg PO BID 02/10/13 Quinapril HCl [Accupril -] 10 mg PO DAILY 02/10/13 Testosterone [Axiron] 60 mg TD DAILY 08/12/15 Diltiazem HCl [Diltiazem 24Hr ER] 180 mg PO AM 03/06/17 Metoprolol Succinate [Toprol Xl] 50 mg PO HS 03/06/17 Ranitidine HCl [Zantac] 150 mg PO BID 03/06/17 Tadalafil [Cialis] 5 mg PO DAILY 03/06/17 Physical Exam-Neuro Vital Signs: Vital Signs Temperature 98.2 F 03/07/17 18:05 Pulse Rate 66 03/07/17 18:05 Respiratory Rate 20 03/07/17 18:05 Blood Pressure 102/67 03/07/17 18:05 O2 Sat by Pulse Oximetry (%) 98 03/07/17 13:00 Labs: INR, PTT INR 1.20 (0.82-1.09) H 03/06/17 22:08 NIH Stroke Scale - Total Score NIH Stroke Scale Score: 0
--- NOTE | 2017-03-07 18:44 | CON.NEURO ---
Consult - Past Medical History Cardio/Vascular: Yes: AFIB, HTN, Hyperlipdemia Endocrine: Yes: Diabetes Mellitus - Alcohol/Substance Use Hx Alcohol Use: No History of Substance Use: reports: None - Smoking History Smoking history: Former smoker Have you smoked in the past 12 months: No Aproximately how many cigarettes per day: 0 If you are a former smoker, when did you quit?: 30 years ago - Social History History of Recent Travel: No Home Medications - Allergies Allergies/Adverse Reactions: Allergies Allergy/AdvReac Type Severity Reaction Status Date / Time Penicillins Allergy Intermediate Verified 03/06/17 21:11 - Home Medications Home Medications: Ambulatory Orders Aspirin [ASA -] 81 mg PO DAILY 02/10/13 Atorvastatin Calcium [Lipitor] 10 mg PO DAILY 02/10/13 Liraglutide [Victoza -] 1.2 mg SQ DAILY@0700 02/10/13 Metformin HCl [Glucophage] 1,000 mg PO BID 02/10/13 Quinapril HCl [Accupril -] 10 mg PO DAILY 02/10/13 Testosterone [Axiron] 60 mg TD DAILY 08/12/15 Diltiazem HCl [Diltiazem 24Hr ER] 180 mg PO AM 03/06/17 Metoprolol Succinate [Toprol Xl] 50 mg PO HS 03/06/17 Ranitidine HCl [Zantac] 150 mg PO BID 03/06/17 Tadalafil [Cialis] 5 mg PO DAILY 03/06/17 Physical Exam-Neuro Vital Signs: Vital Signs Temperature 98.2 F 03/07/17 18:05 Pulse Rate 66 03/07/17 18:05 Respiratory Rate 20 03/07/17 18:05 Blood Pressure 102/67 03/07/17 18:05 O2 Sat by Pulse Oximetry (%) 98 03/07/17 13:00 Labs: INR, PTT INR 1.20 (0.82-1.09) H 03/06/17 22:08 NIH Stroke Scale - Total Score NIH Stroke Scale Score: 0 Assessment/Plan cc episode of double vision lasting few minute and dizziness 61 year old man history of paroxysmal atrial fibrillation , dm and htn oma to a wake and had episode of double vision, he was seeing double , one image top of another. He has no headhace , he was feeling dizzy, and feels, everything was darkening. No dysarthria, dysphagia or weakness or numbness CT head was done and it was unremarkable. Medical History of Atrial fibrillation, DM, htn HLP EX SMOKER ROS reviwed in chart Allergies Penicillins Allergy (Intermediate, Verified 03/06/17 21:11) HOME MEDICATIONS: Home Medications Medication Instructions Recorded Aspirin [ASA -] 81 mg PO DAILY 02/10/13 Atorvastatin Calcium [Lipitor] 10 mg PO DAILY 02/10/13 Liraglutide [Victoza] 1.2 mg SQ DAILY@0700 02/10/13 Metformin HCl [Glucophage] 1,000 mg PO BID 02/10/13 Quinapril HCl [Accupril] 10 mg PO DAILY 02/10/13 Testosterone [Axiron] 60 mg TD DAILY 08/12/15 Diltiazem HCl [Diltiazem 24Hr ER] 180 mg PO AM 03/06/17 Metoprolol Succinate [Toprol Xl] 50 mg PO HS 03/06/17 Ranitidine HCl [Zantac] 150 mg PO BID 03/06/17 Tadalafil [Cialis] 5 mg PO DAILY 03/06/17 Neurological Examination MS alert oriented x 3 Cn no facial asymmetry, eomi and pupils is reactive Motor normal sensation is normal CT HEAD IS NORMAL carotid ultrsound is normal mri of brain and mra of brain is pending Assessment-- Possible tia ( risk factor paroxysmal atrial fibrillation, dm and htn) , symptoms resolved and patient takes aspirin and low dose statin. Plan continue aspirin and statin - Given his symptoms resolved , mri of brain and mra of brain can be done outpatient. - From Neurological point of view he can be discharged , and Spoke to patient and He said he would rather stays in hospital -Once mri of brain and mra of brain is normal, he can be discharged and follow up with me outpatient thanks nir junior md
[2017-03-07] MEDS ORDERED: ATORVASTATIN CA 40 MG TABLET (FP) PO SCH (22:00)
[2017-03-07] MEDS: METOPROLOL SUCCINATE 50 MG TAB.SR.24H (FP) PO SCH (22:10)
[2017-03-07] MEDS: ATORVASTATIN CA 10 MG TABLET (FP) PO SCH (22:10)
[2017-03-07] MEDS ORDERED: PT OWN MED DRAWER 7, Y5N ONE (22:18)
[2017-03-08] MEDS: HEPARIN NA (PORCINE) 5,000 UNITS/ML 1ML VIAL SQ SCH ×3 (02:21→17:21)
[2017-03-08] MEDS: INSULIN SLIDING SCALE (NOVOLOG) 1 VIAL SQ SCH ×4 (06:20→22:49)
[2017-03-08 08:13] LABS: CALCIUM 9.2 mg/dL (8.5-10.1)
[2017-03-08 08:15] LABS: COCKROFT - GAULT 138.85; CREATININE 0.8 mg/dL (0.7-1.3); THYROID STIMULATING HORMONE 1.28 uIU/ml (0.358-3.74); TROPONIN I 0.03 ng/ml (0.00-0.05)
[2017-03-08] MEDS: ASPIRIN 81 MG CHEWABLE TABLETS PO SCH (09:40)
[2017-03-08] MEDS: QUINAPRIL HCL 10 MG TABLET (FP) PO SCH (09:40)
[2017-03-08] MEDS: RANITIDINE HCL 150 MG TABLET (FP) PO SCH ×2 (09:41→22:48)
--- NOTE | 2017-03-08 10:26 | PN ---
Physical Exam: SUBJECTIVE: Patient seen and examined. No complaints. OBJECTIVE: Vital Signs Period Temp Pulse Resp BP Sys/Smith Pulse Ox Last 24 Hr 97.5 F-98.4 F 59-71 18-20 91-121/56-70 98-100 GENERAL: The patient is awake, alert, and fully oriented, in no acute distress. LUNGS: Breath sounds equal, clear to auscultation bilaterally, no wheezes, no crackles, no accessory muscle use. HEART: Regular rate and rhythm, S1, S2 without murmur, rub or gallop. ABDOMEN: Soft, nontender, nondistended, normoactive bowel sounds, no guarding, no rebound, no hepatosplenomegaly, no masses. EXTREMITIES: 2+ pulses, warm, well-perfused, no edema. NEUROLOGICAL: Cranial nerves II through XII grossly intact. Normal speech, gait not observed. Laboratory Results - last 24 hr 03/07/17 03/07/17 03/08/17 17:37 20:38 05:30 Sodium Potassium Chloride Carbon Dioxide Anion Gap BUN Creatinine POC Glucometer 118 163 111 Random Glucose Hemoglobin A1c % Calcium Troponin I Triglycerides Cholesterol Total LDL Cholesterol HDL Cholesterol TSH 03/08/17 03/08/17 06:00 06:00 Sodium 141 Potassium 4.3 Chloride 104 Carbon Dioxide 32 Anion Gap 5 L BUN 18 D Creatinine 0.8 POC Glucometer Random Glucose 108 H D Hemoglobin A1c % 6.7 H Calcium 9.2 Troponin I 0.03 D Triglycerides 89 Cholesterol 91 Total LDL Cholesterol 52 HDL Cholesterol 42 TSH 1.28 D Active Medications Generic Name Dose Route Start Last Admin Trade Name Adalq PRN Reason Stop Dose Admin Aspirin 81 mg 03/07/17 10:00 03/08/17 09:40 Asa - PO 81 mg DAILY JEFF Administration Atorvastatin Calcium 10 mg 03/07/17 22:00 03/07/17 22:10 Lipitor - PO 10 mg HS JEFF Administration Diltiazem HCl 180 mg 03/07/17 10:00 03/08/17 09:40 Cardizem Cd - PO 180 mg DAILY JEFF Administration Heparin Sodium (Porcine) 5,000 unit 03/07/17 02:00 03/08/17 09:40 Heparin - SQ 5,000 unit Q8H-IV JEFF Administration Insulin Aspart 1 vial 03/07/17 07:00 03/08/17 06:20 Novolog Vial Sliding Scale - SQ Not Given ACHS JEFF Protocol Liraglutide 1.2 mg 03/07/17 07:00 03/07/17 06:55 Victoza - SQ Not Given DAILY@0700 [facility] Metoprolol Succinate 50 mg 03/07/17 22:00 03/07/17 22:10 Toprol Xl - PO 50 mg HS JEFF Administration Quinapril HCl 10 mg 03/07/17 10:00 03/08/17 09:40 Accupril - PO 10 mg DAILY JEFF Administration Ranitidine HCl 150 mg 03/07/17 10:00 03/08/17 09:41 Zantac - PO 150 mg BID JEFF Administration ASSESSMENT/PLAN: This is a 61 year old man with a history of type 2 DM, PAF, HTN, hyperlipidemia , GERD, BPH who presented to the ER with diplopia and dizziness. 1. Diplopia, possible TIA - Neurology consult appreciated - outpatient MRI/MRA of brain recommended, but patient preferred to do it as inpatient - Cardiology consult appreciated - Ophthalmology consult appreciated - outpatient follow-up - Carotid dopplers negative - Echo shows normal LV, normal RV, trace to mild MR, mild TR, mild aortic root dilatation - MRI/MRA of brain pending - discharge if normal 2. Paroxysmal atrial fibrillation - Currently in SR - Continue Cardizem CD, Toprol XL 3. Type 2 diabetes mellitus - Continue Victoza, Novolog sliding scale 4. HTN - Continue Cardizem CD, Toprol XL, Accupril 5. Hyperlipidemia - Continue Lipitor 6. GERD - Continue Zantac 7. BPH Visit type - Emergency Visit Emergency Visit: Yes ED Registration Date: 03/07/17 Care time: The patient presented to the Emergency Department on the above date and was hospitalized for further evaluation of their emergent condition. - New Patient This patient is new to me today: No - Critical Care Critical Care patient: No - Discharge Referral Referred to [facility] Med P.C.: No
[2017-03-08] MEDS ORDERED: diazePAM 5 MG TABLET PO ONE (11:00)
--- NOTE | 2017-03-08 12:17 | PN ---
Progress Note (short form) - Note Progress Note: Chief Complaint: Events noted, notes reviewed, denies any recurrent diplopia or dizziness, denies any chest pain or dyspnea History of Present Illness: Seen and examined on telemetry. Events noted, notes reviewed, denies any recurrent diplopia or dizziness, denies any chest pain or dyspnea Echocardiography dated 03/07/2017 revealed normal bi-ventricular size and function and mild TR - Current Medication List Current Medications Aspirin (Asa -) 81 mg PO DAILY [facility] Last Admin: 03/08/17 09:40 Dose: 81 mg Atorvastatin Calcium (Lipitor -) 10 mg PO HS [facility] Last Admin: 03/07/17 22:10 Dose: 10 mg Diltiazem HCl (Cardizem Cd -) 180 mg PO DAILY [facility] Last Admin: 03/08/17 09:40 Dose: 180 mg Heparin Sodium (Porcine) (Heparin -) 5,000 unit SQ Q8H-IV [facility] Last Admin: 03/08/17 09:40 Dose: 5,000 unit Insulin Aspart (Novolog Vial Sliding Scale -) 1 vial SQ [facility] PRN Reason: Protocol Last Admin: 03/08/17 06:20 Dose: Not Given Liraglutide (Victoza -) 1.2 mg SQ DAILY@0700 [facility] Last Admin: 03/07/17 06:55 Dose: Not Given Metoprolol Succinate (Toprol Xl -) 50 mg PO [facility] Last Admin: 03/07/17 22:10 Dose: 50 mg Quinapril HCl (Accupril -) 10 mg PO DAILY [facility] Last Admin: 03/08/17 09:40 Dose: 10 mg Ranitidine HCl (Zantac -) 150 mg PO BID [facility] Last Admin: 03/08/17 09:41 Dose: 150 mg Review of Systems Cardiovascular: As noted above Respiratory: denies: Cough or Sputum Production Gastrointestinal: denies: Nausea, Vomiting, Diarrhea, Constipation or Abdominal Discomfort Musculoskeletal: No Symptoms Reported Endocrine: No Symptoms Reported - Objective Vital Signs: Last Vital Signs Temp Pulse Resp BP Pulse Ox 98.2 F 71 20 109/67 98 03/08/17 10:00 03/08/17 10:00 03/08/17 10:00 03/08/17 10:00 03/08/17 08:00 HEENT: SETH, EOMI Unicteric Sclera Neck: Supple Negative JVD Cardiovascular: S1 S2 Regular Rate and Rhythm Respiratory: Clear to A&P Bilaterally Gastrointestinal: Soft Benign Normal Bowel Sounds Ext: Negative Edema Labs: CBC, BMP 03/06/17 22:08 03/08/17 06:00 Assessment/Plan ASSESSMENT: 1. Diplopia, light-headedness, TIA to be ruled out 2. History of vagally mediated PAF currently in sinus rhythm, [id number] score of 2 on ASA therapy 3. History of premature atrial contraction 4. Hypertension 5. DM 6. Hyperlipidemia PLAN: 1. Continue Cardizem CD 2. Continue Toprol XL 3. Continue Accupril 4. Continue ASA unless MRI of the brain reveals evidence embolic disease, at which point A/C therapy would be recommended 5. Continue Lipitor 10 qd 6. Await MRI/MRA of the brain Ophelia Chavez MD
[2017-03-08] MEDS ORDERED: diazePAM 5 MG TABLET ONE (15:17)
--- NOTE | 2017-03-08 20:38 | PN ---
Progress Note (short form) - Note Progress Note: Nurse called for results of brain MRI; there was evidence of right subacute small infarction of bryanna. Nurse called cardiology who advised eliquis be started. Eliquis 5mg bid started. Problem List - Problems (1) Diplopia Code(s): H53.2 - DIPLOPIA (2) Hyperlipidemia Code(s): E78.5 - HYPERLIPIDEMIA, UNSPECIFIED Qualifiers: Hyperlipidemia type: pure hypercholesterolemia Qualified Code(s): E78.00 - Pure hypercholesterolemia, unspecified; E78.0 - Pure hypercholesterolemia (3) Hypertension Code(s): I10 - ESSENTIAL (PRIMARY) HYPERTENSION Qualifiers: Hypertension type: essential hypertension Qualified Code(s): I10 - Essential (primary) hypertension (4) Near syncope Code(s): R55 - SYNCOPE AND COLLAPSE (5) Paroxysmal atrial fibrillation Code(s): I48.0 - PAROXYSMAL ATRIAL FIBRILLATION (6) Type 2 diabetes mellitus Code(s): E11.9 - TYPE 2 DIABETES MELLITUS WITHOUT COMPLICATIONS Qualifiers: Diabetes mellitus complication status: without complication Diabetes mellitus intermediate card tender insulin use: without intermediate card tender use Qualified Code(s): E11.9 - Type 2 diabetes mellitus without complications (7) BPH (benign prostatic hyperplasia) Code(s): N40.0 - BENIGN PROSTATIC HYPERPLASIA WITHOUT LOWER URINRY TRACT SYMP
[2017-03-08] MEDS: METOPROLOL SUCCINATE 50 MG TAB.SR.24H (FP) PO SCH (22:48)
[2017-03-08] MEDS: ATORVASTATIN CA 10 MG TABLET (FP) PO SCH (22:48)
[2017-03-08] MEDS: APIXABAN 5 MG TABLET PO SCH (22:48)
[2017-03-09] MEDS: INSULIN SLIDING SCALE (NOVOLOG) 1 VIAL SQ SCH (06:04)
[2017-03-09] MEDS: APIXABAN 5 MG TABLET PO SCH (09:30)
[2017-03-09] MEDS: QUINAPRIL HCL 10 MG TABLET (FP) PO SCH (09:30)
[2017-03-09] MEDS: RANITIDINE HCL 150 MG TABLET (FP) PO SCH (09:30)
--- NOTE | 2017-03-09 10:07 | PN ---
Progress Note (short form) - Note Progress Note: Chief Complaint: Events noted, notes reviewed, denies any recurrent diplopia or dizziness, denies any chest pain or dyspnea, results of the MRI noted subacute small vessel infarction of the Andry History of Present Illness: Seen and examined on telemetry. Events noted, notes reviewed, denies any recurrent diplopia or dizziness, denies any chest pain or dyspnea, results of the MRI noted subacute small vessel infarction of the Andry Clinical presentation corresponds to MRI findings Although patient does not report any recent palpitations this does not exclude asymptomatic PAF in a patient with prior history of paroxysmal atrial fibrillation and with his clinical presentation and MRI finding his [id number] score would be 4 which equals 4.8% risk of stroke per year, above discussed with neurology and only issue is ASA or Plavix administration concomitantly would increase risk of bleed. Recommend additional evaluation including intermediate monitoring (possible loop recorder) and LUKASZ as outpatient Echocardiography dated 03/07/2017 revealed normal bi-ventricular size and function and mild TR - Current Medication List Current Medications Eliquis 5 mg PO BID [facility] Atorvastatin Calcium (Lipitor -) 10 mg PO HS JEFF Diltiazem HCl (Cardizem Cd -) 180 mg PO DAILY [facility] Heparin Sodium (Porcine) (Heparin -) 5,000 unit SQ Q8H-IV [facility] Insulin Aspart (Novolog Vial Sliding Scale -) 1 vial SQ ACHS [facility] Liraglutide (Victoza -) 1.2 mg SQ DAILY@0700 JEFF Metoprolol Succinate (Toprol Xl -) 50 mg PO HS [facility] Quinapril HCl (Accupril -) 10 mg PO DAILY JEFF Ranitidine HCl (Zantac -) 150 mg PO BID [facility] Review of Systems Cardiovascular: As noted above Respiratory: denies: Cough or Sputum Production Gastrointestinal: denies: Nausea, Vomiting, Diarrhea, Constipation or Abdominal Discomfort Musculoskeletal: No Symptoms Reported Endocrine: No Symptoms Reported - Objective Vital Signs: Last Vital Signs Temp Pulse Resp BP Pulse Ox 98 F 64 18 121/74 97 03/09/17 09:45 03/09/17 09:45 03/09/17 09:45 03/09/17 09:45 03/09/17 09:45 HEENT: SETH, EOMI Unicteric Sclera Neck: Supple Negative JVD Cardiovascular: S1 S2 Regular Rate and Rhythm Respiratory: Clear to A&P Bilaterally Gastrointestinal: Soft Benign Normal Bowel Sounds Ext: Negative Edema Labs: CBC, BMP 03/06/17 22:08 03/08/17 06:00 Assessment/Plan ASSESSMENT: 1. Diplopia, related to CVA/TIA subacute small vessel infarction of the Andry, possible embolic 2. History of vagally mediated PAF currently in sinus rhythm, [id number] score of 4 on NOAC therapy (initiated last night) 3. History of premature atrial contraction 4. Hypertension 5. DM 6. Hyperlipidemia PLAN: 1. Continue Cardizem CD 2. Continue Toprol XL 3. Continue Accupril 4. Continue Eliquis +/- ASA or Plavix (if dual therapy indicated by neurology consider 2-3 months only) 5. Continue Lipitor 6. Extended outpatient monitoring (possible implantable loop recorder) and LUKASZ as outpatient Above was discussed in detail with the patient, to F/U with Dr. Sheikh Ophelia Chavez MD
--- NOTE | 2017-03-09 11:06 | PN ---
Physical Exam: SUBJECTIVE: Patient seen and examined. He has no complaints. OBJECTIVE: Vital Signs Period Temp Pulse Resp BP Sys/Smith Pulse Ox Last 24 Hr 97.7 F-98.3 F 56-73 14-18 108-127/61-81 97 GENERAL: The patient is awake, alert, and fully oriented, in no acute distress. LUNGS: Breath sounds equal, clear to auscultation bilaterally, no wheezes, no crackles, no accessory muscle use. HEART: Regular rate and rhythm, S1, S2 without murmur, rub or gallop. ABDOMEN: Soft, nontender, nondistended, normoactive bowel sounds, no guarding, no rebound, no hepatosplenomegaly, no masses. EXTREMITIES: 2+ pulses, warm, well-perfused, no edema. NEUROLOGICAL: Cranial nerves II through XII grossly intact. Normal speech, normal gait. Laboratory Results - last 24 hr 03/08/17 03/08/17 03/08/17 12:29 16:50 21:00 POC Glucometer 138 155 197 03/09/17 05:06 POC Glucometer 120 Active Medications Generic Name Dose Route Start Last Admin Trade Name Freq PRN Reason Stop Dose Admin Apixaban 5 mg 03/08/17 22:00 03/09/17 09:30 Eliquis - PO 5 mg BID JEFF Administration Atorvastatin Calcium 10 mg 03/07/17 22:00 03/08/17 22:48 Lipitor - PO 10 mg HS JEFF Administration Diltiazem HCl 180 mg 03/07/17 10:00 03/09/17 09:30 Cardizem Cd - PO 180 mg DAILY JEFF Administration Insulin Aspart 1 vial 03/07/17 07:00 03/09/17 06:04 Novolog Vial Sliding Scale - SQ Not Given ACHS [facility] Protocol Liraglutide 1.2 mg 03/07/17 07:00 03/07/17 06:55 Victoza - SQ Not Given DAILY@0700 JEFF Metoprolol Succinate 50 mg 03/07/17 22:00 03/08/17 22:48 Toprol Xl - PO 50 mg HS JEFF Administration Quinapril HCl 10 mg 03/07/17 10:00 03/09/17 09:30 Accupril - PO 10 mg DAILY JEFF Administration Ranitidine HCl 150 mg 03/07/17 10:00 03/09/17 09:30 Zantac - PO 150 mg BID JEFF Administration ASSESSMENT/PLAN: This is a 61 year old man with a history of type 2 DM, PAF, HTN, hyperlipidemia , GERD, BPH who presented to the ER with diplopia and dizziness. 1. Diplopia secondary to acute CVA of right bryanna, possibly embolic - Diplopia resolved - MRI of brain shows focus of subacute small vessel infarction in right aspect of bryanna - MRA of brain unremarkable - Carotid dopplers negative - Echo shows normal LV, normal RV, trace to mild MR, mild TR, mild aortic root dilatation - Eliquis started - Continue Lipitor 2. Paroxysmal atrial fibrillation - Currently in SR - Continue Cardizem CD, Toprol XL, Eliquis 3. Type 2 diabetes mellitus - Continue Victoza, Novolog sliding scale 4. HTN - Continue Cardizem CD, Toprol XL, Accupril 5. Hyperlipidemia - Continue Lipitor 6. GERD - Continue Zantac 7. BPH 8. Ok for discharge home today Visit type - Emergency Visit Emergency Visit: Yes ED Registration Date: 03/07/17 Care time: The patient presented to the Emergency Department on the above date and was hospitalized for further evaluation of their emergent condition. - New Patient This patient is new to me today: No - Critical Care Critical Care patient: No - Discharge Referral Referred to [facility] Med P.C.: No
[2017-03-09 11:33] VITALS: BP 121/74; PULSE 64; TEMP 98
--- NOTE | 2017-03-09 19:51 | DS ---
Physical Exam: HOSPITAL COURSE: Date of Admission:03/07/17 61 yo M h/o NIDDM and paroxysmal atrial fibrillation admitted to telemetry for diplopia. His symptom resolved upon admission. MRI of brain shows focus of subacute small vessel infarction in right aspect of bryanna. MRI was unremarkable and ECHO showed normal LV and RV. He was started on eliquis and continue current home medication. 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 Date of Discharge: 03/09/17 Minutes to complete discharge: 30 Discharge Summary Reason For Visit: DIPLOPIA DIZZINESS Condition: Stable - Instructions Diet, Activity, Other Instructions: Instruction for continuing care: You were admitted for double vision. MRI showed a stroke located in the right side of the bryanna. You have been started on treatment with Eliquis to prevent future strokes related to atrial fibrillation. Please continue a low fat, low sodium diabetic diet. Please schedule appointments with Dr. Leigh, Dr. Rodriguez (neurology) and Dr. Chavez (cardiology) for follow up this week. Referrals: Jeffrey Rodriguez MD [Staff Physician] - Ophelia Chavez MD [Staff Physician] - Juventino Leigh MD [Primary Care Provider] - Reese Martinez MD [Staff Physician] - Disposition: HOME - Home Medications Comprehensive Discharge Medication List: Ambulatory Orders Atorvastatin Calcium [Lipitor] 10 mg PO DAILY 02/10/13 Liraglutide [Victoza -] 1.2 mg SQ DAILY@0700 02/10/13 Metformin HCl [Glucophage] 1,000 mg PO BID 02/10/13 Quinapril HCl [Accupril -] 10 mg PO DAILY 02/10/13 Testosterone [Axiron] 60 mg TD DAILY 08/12/15 Diltiazem HCl [Diltiazem 24Hr ER] 180 mg PO AM 03/06/17 Metoprolol Succinate [Toprol Xl] 50 mg PO HS 03/06/17 Ranitidine HCl [Zantac] 150 mg PO BID 03/06/17 Tadalafil [Cialis] 5 mg PO DAILY 03/06/17 Apixaban [Eliquis -] 5 mg PO BID #60 tablet 03/09/17 This patient is new to me today: No Emergency Visit: No Critical Care patient: No - Discharge Referral [facility]erred to [facility] Med P.C.: No
== END 2017-03-09 11:17 | disposition home or self-care (01) ==
LOC: JER 21:02 → UNDOADMOB 03-07 00:29 → JERBED 03-07 00:29 → INTOOBSV 03-07 00:29 → JERBED 03-07 00:39 → UNDOADMIN 03-07 00:39 → JERBED 03-07 00:39 → J4S 03-07 01:15 → JERBED 03-07 01:15 → J4S 03-07 01:15
PROVIDERS: ADMIT Internal Medicine; ATTEND Internal Medicine
PROC: 3E013GC Introduction of Other Therapeutic Substance into Subcutaneous Tissue, Percutaneous Approach (ICD-10-PCS; principal; 2017-03-07)
DX: I63.8 Other cerebral infarction (principal); H53.2 Diplopia; I48.0 Paroxysmal atrial fibrillation; I49.1 Atrial premature depolarization; I10 Essential (primary) hypertension; E11.9 Type 2 diabetes mellitus without complications; E78.5 Hyperlipidemia, unspecified; Z79.82 Long term (current) use of aspirin; Z79.84 Long term (current) use of oral hypoglycemic drugs; R55 Syncope and collapse; N40.0 Benign prostatic hyperplasia without lower urinary tract symptoms; K21.9 Gastro-esophageal reflux disease without esophagitis; Z88.0 Allergy status to penicillin; Z79.01 Long term (current) use of anticoagulants
CPT/HCPCS: 36415; 70450-TC; 70544-TC; 70551-TC; 71010-TC; 80048; 80053; 80061; 82550; 83036; 83721; 84443; 84484; 85025; 85610; 93005; 93010; 93306-TC; 93880-TC; 99284-25; G0378; J1644

== ENCOUNTER 2018-11-22 22:23 | Emergency (ER) | payer BC ==
[2018-11-22 23:02] VITALS: BP 130/76; PULSE 74; TEMP 98.1; BMI 25.0
--- NOTE | 2018-11-22 23:58 | PDOC ---
History of Present Illness <Celine Rosa - Last Filed: 11/23/18 01:45> - History of Present Illness Initial Comments: 11/22/18 23:58 63 yo M with h/o paroxysmal Afib (on Eliquis), CVA ( 2016, 09/2018) no residual deficits, NIDDM, who p/w palpitations. Patient reports acute onset of palpitations beginning at 1800 PM, this evening, while at rest watching television. No identifiable triggers or alleviators. States that episodes of palpitations lasting for seconds and resolving spontaneously, until 1000 PM. Patient adherent to daily Eliquis 5mg, ASA, Metoprolol 50 mg, Dilitiazem. Patient reports he has experienced frequent intermittent palpitations for 20 + years, following diagnosis of A-fib. This episode of A-fib consistent with past epsidoes. Patient concerned brayan recently hospitalized for CVA 09/2018. Was told that possible etiology of CVA 2/2 A-fib. Patient currently asymptomatic. Recently completed 30 day holter monitor testing x 3 days ago. Patient denies BELLO, vision change, cough, wheezing, leg pain/swelling, N/V, F,C, CP, SOB, urinary complaints, abdominal pain, diarrhea, constipation, lightheadedness, weakness, sensory changes. PMHx: as noted above. Denies h/o NH, stent placement, CABG, PE. ROS: as noted SHx: Denies IVDA. Social Etoh. Distant tobacco use. Allergies: NKDA Range Master Dr. Vines , PMD Dr. Leigh <Maximilian Anderson - Last Filed: 11/23/18 02:02> - General Chief Complaint: Irregular Heart Beat Stated Complaint: AFIB Time Seen by Provider: 11/22/18 23:52 Past History <Celine Rosa - Last Filed: 11/23/18 01:45> - Past Medical History Anemia: No Asthma: No Cardiac Disorders: Yes (Paroxismal A-fib,) CVA: Yes (x2) COPD: No CHF: No Diabetes: Yes (NIDDM) HTN: Yes Hypercholesterolemia: Yes - Surgical History Abdominal Surgery: No Appendectomy: No Cardiac Surgery: No - Suicide/Smoking/Psychosocial Hx Smoking Status: No Smoking History: Never smoked Have you smoked in the past 12 months: No Number of Cigarettes Smoked Daily: 0 If you are a former smoker, when did you quit?: 30 years ago Information on smoking cessation initiated: No Hx Alcohol Use: No Drug/Substance Use Hx: No Substance Use Type: None <Maximilian Anderson - Last Filed: 11/23/18 02:02> - Past Medical History Allergies/Adverse Reactions: Allergies Allergy/AdvReac Type Severity Reaction Status Date / Time Penicillins Allergy Unknown Verified 11/23/18 01:02 Home Medications: Ambulatory Orders Liraglutide [Victoza -] 1.2 mg SQ DAILY@0700 02/10/13 Quinapril HCl [Accupril -] 10 mg PO DAILY 02/10/13 metFORMIN HCL [Glucophage] 1,000 mg PO BID 02/10/13 Diltiazem HCl [Diltiazem 24Hr ER] 180 mg PO AM 03/06/17 Metoprolol Succinate [Toprol Xl] 50 mg PO HS 03/06/17 Ranitidine HCl [Zantac] 150 mg PO BID 03/06/17 Tadalafil [Cialis] 5 mg PO DAILY 03/06/17 Apixaban [Eliquis -] 5 mg PO BID #60 tablet 03/09/17 Aspirin [ASA -] 325 mg PO DAILY 11/23/18 Cyanocobalamin (Vitamin B-12) [Vitamin B-12] 5,000 mcg PO DAILY 11/23/18 Rosuvastatin Calcium [Crestor] 20 mg PO DAILY 11/23/18 Review of Systems - Review of Systems Comments:: 11/23/18 00:25 GENERAL/CONSTITUTIONAL: No fever or chills. No weakness. HEAD, EYES, EARS, NOSE AND THROAT: No change in vision. No ear pain or discharge. No sore throat. CARDIOVASCULAR: No chest pain or shortness of breath RESPIRATORY: No cough, wheezing, or hemoptysis. GASTROINTESTINAL: No nausea, vomiting, diarrhea or constipation. GENITOURINARY: No dysuria, frequency, or change in urination. MUSCULOSKELETAL: No joint or muscle swelling or pain. No neck or back pain. SKIN: No rash NEUROLOGIC: No headache, vertigo, loss of consciousness, or change in strength/ sensation. ENDOCRINE: No increased thirst. No abnormal weight change HEMATOLOGIC/LYMPHATIC: No anemia, easy bleeding, or history of blood clots. ALLERGIC/IMMUNOLOGIC: No hives or skin allergy. <Maximilian Anderson - Last Filed: 11/23/18 02:02> *Physical Exam - Vital Signs Last Vital Signs Temp Pulse Resp BP Pulse Ox 98.1 F 74 20 130/76 99 11/22/18 22:56 11/22/18 22:56 11/22/18 22:56 11/22/18 22:56 11/22/18 22:56 <Celine Rosa - Last Filed: 11/23/18 01:45> - Vital Signs Last Vital Signs Temp Pulse Resp BP Pulse Ox 98.1 F 74 20 130/76 99 11/22/18 22:56 11/22/18 22:56 11/22/18 22:56 11/22/18 22:56 11/22/18 22:56 - Physical Exam Comments: 11/23/18 00:25 GENERAL: Awake, alert, and fully oriented, in no acute distress HEAD: No signs of trauma, normocephalic, atraumatic EYES: PERRLA, EOMI, sclera anicteric, conjunctiva clear ENT: Hearing grossly normal, nares patent, oropharynx clear without exudates. Moist mucosa NECK: Normal ROM, supple, no lymphadenopathy, JVD, or masses LUNGS: No distress, speaks full sentences, clear to auscultation bilaterally HEART: Regular rate and rhythm, normal S1 and S2, no murmurs, rubs or gallops, peripheral pulses normal and equal bilaterally. ABDOMEN: Soft, nontender, normoactive bowel sounds. No guarding, no rebound. No masses EXTREMITIES : Normal inspection, Normal range of motion, no edema. No clubbing or cyanosis. NEUROLOGICAL: Cranial nerves II through XII grossly intact. Normal speech, normal gait, no focal sensorimotor deficits SKIN: Warm, Dry, normal turgor, no rashes or lesions noted <JustinBolivarMaximilian - Last Filed: 11/23/18 02:02> Moderate Sedation - Procedure Monitoring Vital Signs: Procedure Monitoring Vital Signs Temperature 98.1 F 11/22/18 22:56 Pulse Rate 74 11/22/18 22:56 Respiratory Rate 20 11/22/18 22:56 Blood Pressure 130/76 11/22/18 22:56 O2 Sat by Pulse Oximetry (%) 99 11/22/18 22:56 <Celine Rosa - Last Filed: 11/23/18 01:45> - Procedure Monitoring Vital Signs: Procedure Monitoring Vital Signs Temperature 98.1 F 11/22/18 22:56 Pulse Rate 74 11/22/18 22:56 Respiratory Rate 20 11/22/18 22:56 Blood Pressure 130/76 11/22/18 22:56 O2 Sat by Pulse Oximetry (%) 99 11/22/18 22:56 <Maximilian Anderson - Last Filed: 11/23/18 02:02> ED Treatment Course - LABORATORY CBC & Chemistry Diagram: 11/23/18 00:58 11/23/18 00:58 - ADDITIONAL ORDERS Additional order review: Laboratory Results 11/23/18 11/23/18 11/23/18 01:14 00:58 00:58 PT with INR 14.30 H INR 1.21 H Sodium 140 Potassium 3.9 Chloride 105 Carbon Dioxide 30 Anion Gap 5 L BUN 24 H Creatinine 1.1 Creat Clearance w eGFR > 60 Random Glucose 174 H Calcium 9.7 Total Bilirubin 0.4 AST 15 ALT 25 Alkaline Phosphatase 60 Total Protein 6.9 Albumin 3.8 Urine Color Ltyellow Urine Appearance Clear Urine pH 5.0 Ur Specific [place] 1.018 Urine Protein Negative Urine Glucose (UA) 1+ H Urine Ketones Negative Urine Blood Negative Urine Nitrite Negative Urine Bilirubin Negative Urine Urobilinogen Negative Ur Leukocyte Esterase Negative 11/23/18 00:58 RBC 4.24 MCV 92.6 MCHC 34.7 RDW 13.4 MPV 7.7 Neutrophils % 38.6 L D Lymphocytes % 48.8 H D Monocytes % 7.6 Eosinophils % 4.1 Basophils % 0.9 <Celine Rosa - Last Filed: 11/23/18 01:45> - LABORATORY CBC & Chemistry Diagram: 11/23/18 00:58 11/23/18 00:58 <Maximilian Anderson - Last Filed: 11/23/18 02:02> Medical Decision Making - Medical Decision Making 11/23/18 00:18 63 yo M with h/o paroxysmal Afib (on Eliquis), CVA ( 2016, 09/2018) no residual deficits, NIDDM, who p/w palpitations. Vitals wnl, AF, A&Ox3. Physical exam unremarkable. Denies N/V, F,C, CP, SOB, urinary complaints, abdominal pain, diarrhea, constipation, lightheadedness, weakness, sensory changes. ACS/NH r/o. Will assess for VBI/TIA, cardiac dysarrythmias, hypoglycemia, electrolyte abnml , metabolic and toxic derangements, acid-base disturbances, infection. ED Course: EKG: NSR, HR 72, with Incomplete RBBB. Neg acute MAURICIO, STD. Normal axis and interval duration. Neg Q waves. Nml R wave progression. EKG similar to interval EKG (02/2017) Called Dr. May answering service. Awaiting call back. Dr. Pedraza covering. 11/23/18 01:[address] Pedraza by Dr. Rosa. Agree's with dispo. 11/23/18 02:00 CBC, CMP: Unremarkable UA: Neg 11/23/18 02:02 Pt. stable for d/c with return precautions. Advised to f/u with cardiology. <Maximilian Anderson - Last Filed: 11/23/18 02:02> *DC/Admit/Observation/Transfer - Discharge Dispostion Decision to Admit order: No <Celine oRsa - Last Filed: 11/23/18 01:45> - Attestations Physician Attestion: 11/23/18 00:33 I attest to the information provided in this note. <Maximilian Anderson - Last Filed: 11/23/18 02:02> Diagnosis at time of Disposition: Palpitations - Discharge Dispostion Disposition: HOME Condition at time of disposition: Improved - Referrals Referrals: Juventino Leigh MD [Primary Care Provider] - Vince Fish MD [Staff Physician] - Nate Knowles MD [Staff Physician] - - Patient Instructions Printed Discharge Instructions: DI for Arrhythmias Additional Instructions: Please return to the emergency department with any new or worsening symptoms or concerns. Please follow up with your primary care physician within [address] Farmer/ please follow up with Dr. Knowles and [facility] outpatient within 48 hr. - Post Discharge Activity
--- NOTE | 2018-11-22 23:59 | PDOC ---
Attending Attestation - HPI HPI: 11/23/18 00:26 The patient is a 63 year old male, with a significant PMH of paroxysmal Afib ( on Eliquis), CVA ( 2016, 09/2018) no residual deficits, NIDDM, compliant with all medications, who presents to the emergency department for evaluation of intermittent palpitations which began at around 6pm. Patient has a device that takes portable EKGs to his phone and was informed by it that he was experiencing Afib, which prompted his arrival to the ED. Patient is worried as he recently experienced a stroke at the beginning of this month. The patient denies shortness of breath, headache and dizziness. Denies fever, chills, nausea, vomit, diarrhea and constipation. Denies dysuria, frequency, urgency and hematuria. Allergies: Penicillin Social history: No reported PCP: Dr. Cope Sock Lining Stitcher: Dr. Vines - Physicial Exam PE: 11/23/18 00:26 GENERAL: Awake, alert, and fully oriented, in no acute distress HEAD: No signs of trauma EYES: PERRLA, EOMI, sclera anicteric, conjunctiva clear ENT: Auricles normal inspection, hearing grossly normal, nares patent, oropharynx clear without exudates. Moist mucosa NECK: Normal ROM, supple, no lymphadenopathy, JVD, or masses LUNGS: Breath sounds equal, clear to auscultation bilaterally. No wheezes, and no crackles HEART: Regular rate and rhythm, normal S1 and S2, no murmurs, rubs or gallops ABDOMEN: Soft, nontender, normoactive bowel sounds. No guarding, no rebound. No masses EXTREMITIES: Normal range of motion, no edema. No clubbing or cyanosis. No cords, erythema, or tenderness NEUROLOGICAL: Cranial nerves II through XII grossly intact. Normal speech. SKIN: Warm, Dry, normal turgor, no rashes or lesions noted. <Amber Jackson - Last Filed: 11/23/18 00:26> - Resident Resident Name: Maximilian Anderson - ED Attending Attestation I have performed the following: I have examined & evaluated the patient, The case was reviewed & discussed with the resident, I agree w/resident's findings & plan - Medical Decision Making 11/23/18 01:12 Pt will follow next week with Drs. Knowles and raquel, who are covering for Dr. May next week. Pt feels great ever since he arrived in the ER and he has a normal sinus rhythm EKG with old bundle branch block and normal CXR. He will be discharged home. <Celine Rosa - Last Filed: 11/23/18 01:13> Attestations - Attestations 11/23/18 00:28 Documentation prepared by Amber Jackson, acting as medical translator for Celine Rosa MD. <Amber Jackson - Last Filed: 11/23/18 00:26>
[2018-11-23 01:10] LABS: BASO % 0.9 % (0-2.0); EOS % 4.1 % (0-4.5); HEMATOCRIT 39.3 % (35.4-49); HEMOGLOBIN 13.6 GM/dL (11.7-16.9); LYMPH % 48.8 % (8-40); MCH 32.1 pg (25.7-33.7); MCHC 34.7 g/dl (32.0-35.9); MEAN CELL VOLUME 92.6 fl (80-96); MEAN PLT VOLUME 7.7 fl (7.5-11.1); MONO % 7.6 % (3.8-10.2); NEUT % 38.6 % (42.8-82.8); PLATELET COUNT 171 K/MM3 (134-434); RBC 4.24 M/mm3 (4.00-5.60); RDW 13.4 % (11.9-15.9)
[2018-11-23 01:31] LABS: INR 1.21 (0.83-1.09); PROTHROMBIN TIME (PATIENT) 14.3 SEC (9.7-13.0)
[2018-11-23 01:35] LABS: URINE APPEARANCE CLEAR; URINE BILIRUBIN NEGATIVE (<2.0 mg/dL); URINE COLOR LTYELLOW; URINE GLUCOSE (UA) 1+ (NEGATIVE); URINE KETONE NEGATIVE (NEGATIVE); URINE LEUK ESTERASE NEGATIVE (NEGATIVE); URINE NITRITE NEGATIVE (NEGATIVE); URINE PROTEIN NEGATIVE (NEGATIVE); URINE UROBILINOGEN NEGATIVE mg/dL (0.2-1.0)
[2018-11-23 01:36] LABS: ALBUMIN 3.8 g/dl (3.4-5.0); ALK PHOS 60 U/L (45-117); ANION GAP 5 MMOL/L (8-16); BILIRUBIN,TOTAL 0.4 mg/dL (0.2-1); BLOOD UREA NITROGEN 24 mg/dL (7-18); CALCIUM 9.7 mg/dL (8.5-10.1); CHLORIDE 105 mmol/L (98-107); CO2 30 mmol/L (21-32); CREATININE 1.1 mg/dL (0.55-1.3); GLUCOSE,RANDOM 174 mg/dL (74-106); POTASSIUM 3.9 mmol/L (3.5-5.1); SGOT/AST 15 U/L (15-37); SGPT/ALT 25 U/L (13-61); SODIUM 140 mmol/L (136-145); TOT PROT 6.9 g/dl (6.4-8.2)
--- NOTE | 2018-11-23 09:42 | EKG ---
Test Reason : Blood Pressure : / mmHG Vent. Rate : 072 BPM Atrial Rate : 072 BPM P-R Int : 170 ms QRS Dur : 144 ms QT Int : 410 ms P-R-T Axes : 066 -08 023 degrees QTc Int : 448 ms NORMAL SINUS RHYTHM RIGHT BUNDLE BRANCH BLOCK ABNORMAL ECG WHEN COMPARED WITH ECG OF 06-MAR-2017 22:15, NO SIGNIFICANT CHANGE WAS FOUND Confirmed by LIZZIE RAMOS MD ([id number]) on 11/23/2018 9:41:57 AM Referred By: Confirmed By:LIZZIE RAMOS MD
== END 2018-11-23 02:09 | disposition home or self-care (01) ==
LOC: JER 22:23
DX: R00.2 Palpitations (principal); I48.0 Paroxysmal atrial fibrillation; Z79.01 Long term (current) use of anticoagulants; I10 Essential (primary) hypertension; E11.9 Type 2 diabetes mellitus without complications; Z79.84 Long term (current) use of oral hypoglycemic drugs; E78.00 Pure hypercholesterolemia, unspecified; Z86.73 Personal history of transient ischemic attack (TIA), and cerebral infarction without residual deficits
CPT/HCPCS: 36415; 71045-TC-FY; 80053; 81003; 82550; 84484; 85025; 85610; 93005; 93010; 99283-25

== ENCOUNTER 2019-01-04 16:10 | Emergency (ER) | payer BC ==
[2019-01-04 16:20] VITALS: BMI 31.0
--- NOTE | 2019-01-04 16:25 | PDOC ---
History of Present Illness <Felicita Wills - Last Filed: 01/05/19 01:10> - History of Present Illness Initial Comments: 01/04/19 16:45 63 year old man with a significant past medical history of NIDDM, HTN, AFIB ( eliquis), hypercholesterolemia, and HLD, who presents to the emergency department today double vision on 1509 and ongoing since then. The patient had the same the symptosm prior to his past stroke in 2017 and was found have a pontine CVA. The patient denies any focal neurological defiicits including weakness, nubmness, facial droop, and paresthesia, chest pain, sob, N/v/d/c, denies medication changes, recent illness or fever. He has no other complaitns at bedside. PCP: Dr. Juventino Leigh [phone] CARDIO: Dr. Isidoro Tomas [phone] PAST MEDICAL HISTORY: NIDDM, HTN, AFIB, and HLD <Karen Jackson - Last Filed: 01/07/19 18:22> - General Chief Complaint: CVA/TIA Stated Complaint: DOBLE VISSION Time Seen by Provider: 01/04/19 16:25 NIH Stroke Scale - Last Known Well Date/Time & Onset Date Last Known Well: 01/04/19 Time Last Known Well: 15:09 - Initial Evaluation Level of consciousness: Alert Ask patient the month and their age: Answers both correctly Ask patient to open & close eyes; make fist and let go: Obeys both correctly Best gaze (horizontal eye movement): Normal Visual field testing: No visual field loss Facial paresis (Show teeth/raise eyebrows/close eyes tight): Normal symmetrical movement Motor Function: Left Arm: Normal Motor Function: Right Arm: Normal (extends arm 90 (or 45) degrees for 10 seconds without drift Motor Function: Left Leg: Normal (extends leg 30 degrees for 5 seconds without drift) Motor Function: Right Leg: Normal (extends leg 30 degrees for 5 seconds without drift) Limb Ataxia: No ataxia Sensory(Use pinprick test arms,legs,trunk,face/side to side): Normal Best language (Describe picture, name items, read sentences): No Aphasia Dysarthria (read several words): Normal articulation Extinction and Inattention: No abnormality - Total Score NIH Stroke Scale Score: 0 <Karen Jackson - Last Filed: 01/07/19 18:22> tPA Exclusion Checklist 0-3hr - Time Elapsed Date last known well: 01/04/19 Time last known well: 15:09 Elaspsed time: 3 Day(s) and 3 Hour(s) and 12 Minutes - Thrombolytic Therapy Candidate Is the patient eligible for Thrombolytic Therapy?: Yes - Exclusion Criteria 0-3hr Recent IC/spinal surgery,head trauma or stroke w/in last 3mo: No Hx of previous IC hemorrhage, IC neoplasm, AVM or aneurysm: No Active internal bleeding: No Blding diathesis(low plt ct, inc PTT,INR>1.7 or use of NOAC): No Symptoms suggest subarachnoid hemorrhage: No CT demonstrates multilobar infarct(>1/3 cerebral hemiphere): No Arterial puncture at noncompressible site in previous 7 days: No Blood glucose concentration less than 50mg/dL (2.7mmol/L): No - Relative Exclusion Criteria 0-3h Life expectancy <1yr/severe co-morbid illness/[employer]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: No : No Patient/family refused: No Rapid improvement: No Stroke severity too mild: Yes Recent acute IA (w/in previous 3 months): No Seizure at onset with postictal residual neuro impairments: No Major surgery or serious trauma w/in previous 14 days: No Recent GI or hemorrhage (w/in previous 21 days): No - Ineligibility reason(s) Reasons No tPA given: See reason(s) noted above <Karen Jackson - Last Filed: 01/07/19 18:22> Past History <Felicita Wills - Last Filed: 01/05/19 01:10> - Past Medical History Anemia: No Asthma: No Cardiac Disorders: Yes (Paroxismal A-fib,) CVA: Yes (x2) COPD: No CHF: No Diabetes: Yes (NIDDM) HTN: Yes Hypercholesterolemia: Yes - Surgical History Abdominal Surgery: No Appendectomy: No Cardiac Surgery: No - Suicide/Smoking/Psychosocial Hx Smoking Status: No Smoking History: Former smoker Have you smoked in the past 12 months: No Number of Cigarettes Smoked Daily: 0 If you are a former smoker, when did you quit?: 30 years ago Information on smoking cessation initiated: No Hx Alcohol Use: No Drug/Substance Use Hx: No Substance Use Type: None <Karen Jackson - Last Filed: 01/07/19 18:22> - Past Medical History Allergies/Adverse Reactions: Allergies Allergy/AdvReac Type Severity Reaction Status Date / Time Penicillins Allergy Unknown Verified 01/04/19 16:22 Home Medications: Ambulatory Orders Liraglutide [Victoza -] 1.2 mg SQ DAILY@0700 02/10/13 Quinapril HCl [Accupril -] 10 mg PO DAILY 02/10/13 metFORMIN HCL [Glucophage] 1,000 mg PO BID 02/10/13 Diltiazem HCl [Diltiazem 24Hr ER] 180 mg PO AM 03/06/17 Metoprolol Succinate [Toprol Xl] 50 mg PO HS 03/06/17 Ranitidine HCl [Zantac] 150 mg PO BID 03/06/17 Tadalafil [Cialis] 5 mg PO DAILY 03/06/17 Apixaban [Eliquis -] 5 mg PO BID #60 tablet 03/09/17 Aspirin [ASA -] 325 mg PO DAILY 11/23/18 Cyanocobalamin (Vitamin B-12) [Vitamin B-12] 5,000 mcg PO DAILY 11/23/18 Rosuvastatin Calcium [Crestor] 20 mg PO DAILY 11/23/18 Review of Systems - Review of Systems Able to Perform ROS?: Yes Comments:: 01/04/19 16:51 GENERAL/CONSTITUTIONAL: No fever or chills. No weakness. HEAD, EYES, EARS, NOSE AND THROAT: + double vision change. No ear pain or discharge. No sore throat. CARDIOVASCULAR: No chest pain or shortness of breath RESPIRATORY: No cough, wheezing, or hemoptysis. GASTROINTESTINAL: No nausea, vomiting, diarrhea or constipation. GENITOURINARY: No dysuria, frequency, or change in urination. MUSCULOSKELETAL: No joint or muscle swelling or pain. No neck or back pain. SKIN: No rash NEUROLOGIC: No headache, vertigo, loss of consciousness, or change in strength/ sensation. ENDOCRINE: No increased thirst. No abnormal weight change HEMATOLOGIC/LYMPHATIC: No anemia, easy bleeding, or history of blood clots. ALLERGIC/IMMUNOLOGIC: No hives or skin allergy. Is the patient limited Bel[place]ian proficient: No <Karen Jackson - Last Filed: 01/07/19 18:22> *Physical Exam - Vital Signs Last Vital Signs Temp Pulse Resp BP Pulse Ox 98.2 F 76 17 108/62 98 01/05/19 00:14 01/05/19 00:14 01/05/19 00:14 01/05/19 00:14 01/05/19 00:14 <Felicita Wills - Last Filed: 01/05/19 01:10> - Vital Signs Last Vital Signs Temp Pulse Resp BP Pulse Ox 98 F 69 18 137/74 97 01/04/19 16:19 01/04/19 16:19 01/04/19 16:19 01/04/19 16:19 01/04/19 16:19 - Physical Exam Comments: 01/04/19 16:52 GENERAL: Awake, alert, and fully oriented, in no acute distress HEAD: No signs of trauma, normocephalic, atraumatic EYES: EOMI, sclera anicteric, conjunctiva clear ENT: oropharynx clear without exudates. Moist mucosa NECK: Normal ROM, supple LUNGS: No distress, speaks full sentences, clear to auscultation bilaterally HEART: Regular rate and rhythm, normal S1 and S2, no murmurs, rubs or gallops, peripheral pulses normal and equal bilaterally. ABDOMEN: Soft, nontender, normoactive bowel sounds. No guarding, no rebound. No masses EXTREMITIES : Normal inspection, Normal range of motion, no edema. No clubbing or cyanosis. NEUROLOGICAL: Cranial nerves II through XII grossly intact. Normal speech, normal gait, no focal sensorimotor deficits SKIN: Warm, Dry, normal turgor, no rashes or lesions noted <Karen Jackson - Last Filed: 01/07/19 18:22> ED Treatment Course - LABORATORY CBC & Chemistry Diagram: 01/04/19 16:41 01/04/19 16:41 - ADDITIONAL ORDERS Additional order review: Laboratory Results 01/04/19 01/04/19 01/04/19 17:40 16:41 16:41 PT with INR INR Sodium 139 Potassium 4.0 Chloride 106 Carbon Dioxide 28 Anion Gap 5 L BUN 19 H Creatinine 0.9 Creat Clearance w eGFR 85.23 POC Glucometer Random Glucose 120 H Calcium 9.4 Total Bilirubin 0.7 AST 14 L ALT 23 Alkaline Phosphatase 54 Creatine Kinase 76 Troponin I < 0.02 Total Protein 6.9 Albumin 3.8 Triglycerides 62 Cholesterol 83 Total LDL Cholesterol 33 HDL Cholesterol 45 Urine Color Yellow Urine Appearance Clear Urine pH 8.0 D Ur Specific [place] 1.014 Urine Protein Negative Urine Glucose (UA) Trace Urine Ketones Negative Urine Blood Negative Urine Nitrite Negative Urine Bilirubin Negative Urine Urobilinogen 1.0 Ur Leukocyte Esterase Negative Blood Type A POSITIVE Antibody Screen Negative 01/04/19 01/04/19 16:41 16:28 PT with INR 18.00 H INR 1.52 H Sodium Potassium Chloride Carbon Dioxide Anion Gap BUN Creatinine Creat Clearance w eGFR POC Glucometer 120 Random Glucose Calcium Total Bilirubin AST ALT Alkaline Phosphatase Creatine Kinase Troponin I Total Protein Albumin Triglycerides Cholesterol Total LDL Cholesterol HDL Cholesterol Urine Color Urine Appearance Urine pH Ur Specific [place] Urine Protein Urine Glucose (UA) Urine Ketones Urine Blood Urine Nitrite Urine Bilirubin Urine Urobilinogen Ur Leukocyte Esterase Blood Type Antibody Screen 01/04/19 01/04/19 16:41 16:28 RBC 4.05 MCV 94.0 MCHC 33.1 RDW 13.7 MPV 7.8 Neutrophils % 48.0 D Lymphocytes % 38.4 D Monocytes % 9.1 Eosinophils % 3.0 Basophils % 1.5 POC Glucometer 120 - Medications Given in the ED: ED Medications Discontinued Medications Generic Name Dose Route Start Last Admin Trade Name Homero PRN Reason Stop Dose Admin Metformin HCl 1,000 mg 01/04/19 21:28 01/04/19 21:42 Glucophage - PO 01/04/19 21:29 1,000 mg ONCE ONE Administration Metoprolol Succinate 50 mg 01/04/19 21:28 01/04/19 21:42 Toprol Xl - PO 01/04/19 21:29 50 mg ONCE ONE Administration Quinapril HCl 10 mg 01/04/19 21:28 01/04/19 21:42 Accupril - PO 01/04/19 21:29 10 mg ONCE ONE Administration Ranitidine HCl 150 mg 01/04/19 21:28 01/04/19 21:42 Zantac - PO 01/04/19 21:29 150 mg ONCE ONE Administration <Felicita Wills - Last Filed: 01/05/19 01:10> - LABORATORY CBC & Chemistry Diagram: 01/04/19 16:41 01/04/19 16:41 <Karen Jackson - Last Filed: 01/07/19 18:22> Medical Decision Making - Medical Decision Making 01/04/19 16:49 63 year old man with a significant past medical history of NIDDM, HTN, AFIB ( eliquis), hypercholesterolemia, and HLD, who presents to the emergency department today double vision on 1509 and ongoing since then. The patient had the same the symptosm prior to his past stroke in 2017 and was found have a pontine CVA. The patient denies any focal neurological defiicits including weakness, nubmness, facial droop, and paresthesia, chest pain, sob, N/v/d/c, denies medication changes, recent illness or fever. He has no other complaitns at bedside. ED Course: consider cva vs tia labnwork wnl CT: with no acute intracranial bleed 01/04/19 17:[address] Hawk who recommends emergent MRI 01/04/19 18:[address] Hawk, he reviewed MRIs compared to prior and notes that there is still enhancement at prior bleed site indicated rebleed into a prior stroke. He prefers that the patient be transferred to [facility] as this patient has had 3 prior strokes, subclavian anuerysm, on full ASA and eliquis yet is still having strokes concern over repeat stroke into R occipital lobe. pending call back from Neuro ICU Patient transferred to [facility] service <Karen Jackson - Last Filed: 01/07/19 18:22> *DC/Admit/Observation/Transfer - Discharge Dispostion Decision to Admit order: No - Transfer to Acute Care Facility Receiving Facility: [facility] <Felicita Wills - Last Filed: 01/05/19 01:10> <Karen Jackson - Last Filed: 01/07/19 18:22> Diagnosis at time of Disposition: CVA (cerebral vascular accident) Qualifiers: CVA mechanism: unspecified Qualified Code(s): I63.9 - Cerebral infarction, unspecified - Discharge Dispostion Disposition: TRANSFER ACUTE CARE/OTHER HOSP Condition at time of disposition: Stable - Referrals Referrals: Juventino Leigh MD [Primary Care Provider] -
[2019-01-04] MEDS ORDERED: SODIUM CHLORIDE 1,000 ML IV SCH (16:30)
[2019-01-04 16:49] LABS: BASO % 1.5 % (0-2.0); HEMATOCRIT 38.1 % (35.4-49); HEMOGLOBIN 12.6 GM/dL (11.7-16.9); LYMPH % 38.4 % (8-40); MCH 31.1 pg (25.7-33.7); MCHC 33.1 g/dl (32.0-35.9); MEAN PLT VOLUME 7.8 fl (7.5-11.1); MONO % 9.1 % (3.8-10.2); PLATELET COUNT 185 K/MM3 (134-434); RBC 4.05 M/mm3 (4.00-5.60); RDW 13.7 % (11.9-15.9); WHITE BLOOD COUNT 4.4 K/mm3 (4.0-10.0)
--- NOTE | 2019-01-04 16:52 | PDOC ---
Attending Attestation - Resident Resident Name: ReddySaul romeroie - ED Attending Attestation I have performed the following: I have examined & evaluated the patient, The case was reviewed & discussed with the resident, I agree w/resident's findings & plan, Exceptions are as noted - HPI HPI: 01/04/19 16:50 63 M with h/o HTN, DM, pAfib on eliquis, CVA, presenting with double vision. Pt states that about 1 hour prior to arrival, pt started to see two images overlaid on each other. He denies any headache, denies dizziness, denies weakness/numbness in any extremity. Pt states that this was the same presentation he had with his previous stroke. - Physicial Exam PE: 01/04/19 16:51 GENERAL: Awake, alert, and fully oriented, in no acute distress. HEAD: No signs of trauma EYES: PERRLA, EOMI, sclera anicteric, conjunctiva clear ENT: Auricles normal inspection, hearing grossly normal, nares patent, oropharynx clear without exudates. Moist mucosa NECK: Nontender, no stepoffs, Normal ROM, supple, no lymphadenopathy, JVD, or masses LUNGS: Breath sounds equal, clear to auscultation bilaterally. No wheezes, and no crackles HEART: Regular rate and rhythm, normal S1 and S2, no murmurs, rubs or gallops ABDOMEN: Soft, nontender, normoactive bowel sounds. No guarding, no rebound. No masses EXTREMITIES: Normal range of motion, no edema. No clubbing or cyanosis. No cords, erythema, or tenderness NEUROLOGICAL: Cranial nerves II through XII intact. 5/5 strength and sensation in all extremities, Normal speech, normal gait, normal cerebellar function SKIN: Warm, Dry, normal turgor, no rashes or lesions noted. - Critical Care Time Total Critical Care Time: 60 Critical Care Statement: The care of this patient involved high complexity decision making to prevent further life threatening deterioration of the patient 's condition and/or to evaluate & treat vital organ system(s) failure or risk of failure. - Medical Decision Making 01/04/19 16:51 63 M with double vision, suspicious for CVA. Pt within window for tpa but given low NIHSS, will hold tpa. - Labs - Head CT - Neuro c/s 01/04/19 18:[address] head wnl Dr. Hawk has evaluated pt, agrees with holding tpa. Will obtain stat MRI. Possible transfer. 01/04/19 18:49 Pt with possible re-bleed of old stroke based on Dr. Hawk's prelim read of MRI. He recommends txfer to [place]. Will consent and transfer pt. <Humble Hidalgo - Last Filed: 01/04/19 18:49> - Medical Decision Making 6:40PM Call placed to [facility] for transfer, made aware neurology service is in emergency and will call back, facesheet faxed. 8:17PM Call placed to [facility] for transfer center, made aware neurology service still in emergency, awaiting call back. <Maria Fernanda Valdez - Last Filed: 01/04/19 20:18> NIH Stroke Scale - Last Known Well Date/Time & Onset Date Last Known Well: 01/04/19 Time Last Known Well: 15:10 - Initial Evaluation Level of consciousness: Alert Ask patient the month and their age: Answers both correctly Ask patient to open & close eyes; make fist and let go: Obeys both correctly Best gaze (horizontal eye movement): Normal Visual field testing: No visual field loss Facial paresis (Show teeth/raise eyebrows/close eyes tight): Normal symmetrical movement Motor Function: Left Arm: Normal Motor Function: Right Arm: Normal (extends arm 90 (or 45) degrees for 10 seconds without drift Motor Function: Left Leg: Normal (extends leg 30 degrees for 5 seconds without drift) Motor Function: Right Leg: Normal (extends leg 30 degrees for 5 seconds without drift) Limb Ataxia: No ataxia Sensory(Use pinprick test arms,legs,trunk,face/side to side): Normal Best language (Describe picture, name items, read sentences): No Aphasia Dysarthria (read several words): Normal articulation Extinction and Inattention: No abnormality - Total Score NIH Stroke Scale Score: 0 <Humble Hidalgo - Last Filed: 01/04/19 18:49>
[2019-01-04 17:11] LABS: ALBUMIN 3.8 g/dl (3.4-5.0); ALK PHOS 54 U/L (45-117); ANION GAP 5 MMOL/L (8-16); BILIRUBIN,TOTAL 0.7 mg/dL (0.2-1); BLOOD UREA NITROGEN 19 mg/dL (7-18); CALCIUM 9.4 mg/dL (8.5-10.1); CHLORIDE 106 mmol/L (98-107); CHOLESTEROL 83 mg/dL (50-200); CO2 28 mmol/L (21-32); CREATININE 0.9 mg/dL (0.55-1.3); GLUCOSE,RANDOM 120 mg/dL (74-106); HDL CHOLESTEROL 45 mg/dL (40-60); INR 1.52 (0.83-1.09); SGOT/AST 14 U/L (15-37); SGPT/ALT 23 U/L (13-61); SODIUM 139 mmol/L (136-145); TOT PROT 6.9 g/dl (6.4-8.2); TRIGLYCERIDES 62 mg/dL (0-150)
[2019-01-04 17:51] LABS: URINE APPEARANCE CLEAR; URINE BILIRUBIN NEGATIVE (NEGATIVE); URINE COLOR YELLOW; URINE GLUCOSE (UA) TRACE (NEGATIVE); URINE KETONE NEGATIVE (NEGATIVE); URINE LEUK ESTERASE NEGATIVE (NEGATIVE); URINE NITRITE NEGATIVE (NEGATIVE); URINE PROTEIN NEGATIVE (NEGATIVE)
--- NOTE | 2019-01-04 17:58 | CON.NEURO ---
Consult Reason for Consultation:: diplopia - History of Present Illness History of Present Illness: 63-year-old right-handed man well known to me with history of Prior CVA 2 Atrial fibrillation On anticoagulation High cholesterol Hypertension What was at his usual status of health until about like an hour and a half ago when he was shopping and he was checking out when he had double vision patient felt his pulse claims that he there was not in atrial fibrillation patient called his with proton to [facility] NIH stroke scale in the emergency room was 0 patient was with binocular diplopia. I so the patient in the emergency room CAT scan revealed no evidence of bleed patient again is on anticoagulation and full aspirin. Patient is under the care of cardiology and neurology. 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 - History Source History Provided By: Patient Limitations to Obtaining History: Clinical Condition - Past Medical History Cardio/Vascular: Yes: AFIB, HTN, Hyperlipdemia Endocrine: Yes: Diabetes Mellitus - Alcohol/Substance Use Hx Alcohol Use: No History of Substance Use: reports: None - Smoking History Smoking history: Former smoker Have you smoked in the past 12 months: No Aproximately how many cigarettes per day: 0 If you are a former smoker, when did you quit?: 30 years ago - Social History History of Recent Travel: No Home Medications - Allergies Allergies/Adverse Reactions: Allergies Allergy/AdvReac Type Severity Reaction Status Date / Time Penicillins Allergy Unknown Verified 01/04/19 16:22 - Home Medications Home Medications: Ambulatory Orders Liraglutide [Victoza -] 1.2 mg SQ DAILY@0700 02/10/13 Quinapril HCl [Accupril -] 10 mg PO DAILY 02/10/13 metFORMIN HCL [Glucophage] 1,000 mg PO BID 02/10/13 Diltiazem HCl [Diltiazem 24Hr ER] 180 mg PO AM 03/06/17 Metoprolol Succinate [Toprol Xl] 50 mg PO HS 03/06/17 Ranitidine HCl [Zantac] 150 mg PO BID 03/06/17 Tadalafil [Cialis] 5 mg PO DAILY 03/06/17 Apixaban [Eliquis -] 5 mg PO BID #60 tablet 03/09/17 Aspirin [ASA -] 325 mg PO DAILY 11/23/18 Cyanocobalamin (Vitamin B-12) [Vitamin B-12] 5,000 mcg PO DAILY 11/23/18 Rosuvastatin Calcium [Crestor] 20 mg PO DAILY 11/23/18 Review of Systems - Review of Systems Constitutional: reports: No Symptoms Eyes: reports: No Symptoms Neurological: reports: Change in Speech, Headache, Incoordination, Numbness Physical Exam-Neuro Vital Signs: Vital Signs Temperature 98 F 01/04/19 16:19 Pulse Rate 78 01/04/19 17:02 Respiratory Rate 18 01/04/19 17:02 Blood Pressure 102/66 01/04/19 17:02 O2 Sat by Pulse Oximetry (%) 97 01/04/19 16:19 Constitutional: Yes: Well Nourished Neck: Yes: WNL Labs: CBC, BMP 01/04/19 16:41 01/04/19 16:41 INR, PTT INR 1.52 (0.83-1.09) H 01/04/19 16:41 - Neuro Exam Level Of Consciousness: Yes: Oriented to Person, Oriented to Place, Oriented to Time Eyes: Yes: PERRLA Speech: WNL Dominant Hand: Right Cranial Nerves II-XII Intact: No (left third palsy) Gag: Present DTR's: 1+ Left Bicep, 1+ Right Bicep, 1+ Left Brachioradialis, 1+ Right Brachioradialis Response to light touch: Abnormal Response to pain prick: Abnormal Response to temperature: Abnormal Motor Strength: 3/5: Left Arm, Right Arm, Left Leg, Right Leg Gait: Deferred Imaging - Results Cat Scan: Image Reviewed Problem List - Problems (1) CVA (cerebral vascular accident) Assessment/Plan: rule out new left pontine stroke Prescribed factor cardiac arrhythmia subclavian aneurysm prior CVA Patient is on anticoagulation does not helping him 1. Stat MRI of the brain with no contrast. 2. IV heparin no bolus keep the PTT between 50-70 3. Will arrange transfer to a tertiary stroke center. Code(s): I63.9 - CEREBRAL INFARCTION, UNSPECIFIED
[2019-01-04] MEDS ORDERED: RANITIDINE HCL 150 MG TABLET (FP) PO ONE (21:28)
[2019-01-04] MEDS ORDERED: QUINAPRIL HCL 10 MG TABLET (FP) PO ONE (21:28)
[2019-01-04] MEDS ORDERED: metFORMIN HCL 500 MG TABLET (FP) PO ONE (21:28)
[2019-01-04] MEDS ORDERED: metFORMIN HCL 500 MG TABLET (FP) ONE (21:38)
[2019-01-04] MEDS ORDERED: RANITIDINE HCL 150 MG TABLET (FP) ONE (21:38)
[2019-01-04] MEDS ORDERED: QUINAPRIL HCL 10 MG TABLET (FP) ONE (21:38)
[2019-01-05 00:16] VITALS: BP 108/62; PULSE 76; TEMP 98.2
[2019-01-05] MEDS ORDERED: LIRAGLUTIDE 0.6 MG/0.1 ML PEN.INJCTR SQ SCH (07:00)
--- NOTE | 2019-01-05 14:25 | EKG ---
Test Reason : Blood Pressure : / mmHG Vent. Rate : 067 BPM Atrial Rate : 067 BPM P-R Int : 168 ms QRS Dur : 146 ms QT Int : 420 ms P-R-T Axes : 065 -17 -01 degrees QTc Int : 443 ms NORMAL SINUS RHYTHM RIGHT BUNDLE BRANCH BLOCK ABNORMAL ECG WHEN COMPARED WITH ECG OF 22-NOV-2018 22:51, NO SIGNIFICANT CHANGE WAS FOUND Confirmed by MD Helga, Lester ([id number]) on 01/05/2019 2:24:36 PM Referred By: Confirmed By:Lester Partida MD
== END 2019-01-05 01:22 | disposition short-term general hospital (02) ==
LOC: JER 16:10
DX: I63.9 Cerebral infarction, unspecified (principal); I10 Essential (primary) hypertension; E11.9 Type 2 diabetes mellitus without complications; I48.0 Paroxysmal atrial fibrillation; Z79.01 Long term (current) use of anticoagulants; Z79.82 Long term (current) use of aspirin; E78.5 Hyperlipidemia, unspecified; E78.00 Pure hypercholesterolemia, unspecified; Z86.73 Personal history of transient ischemic attack (TIA), and cerebral infarction without residual deficits
CPT/HCPCS: 36415; 70450-TC; 70551-TC; 80053; 81003; 82465; 82550; 82962; 83718; 83721; 84478; 84484; 85025; 85610; 86850; 86900; 86901; 93005; 93010; 99285-25; J7030

== ENCOUNTER 2019-11-07 04:50 | Emergency (ER) | payer BC ==
[2019-11-07 05:03] VITALS: TEMP 98.6; BMI 27.1
[2019-11-07] MEDS ORDERED: METHOCARBAMOL 500 MG TABLET PO ONE (05:34)
[2019-11-07] MEDS ORDERED: ACETAMINOPHEN 1000 MG/100 ML VIAL (NON FORMULARY) IVPB ONE (05:34)
--- NOTE | 2019-11-07 05:34 | PDOC ---
Attending Attestation - Resident Resident Name: Felicita Thomas - ED Attending Attestation I have performed the following: I have examined & evaluated the patient, The case was reviewed & discussed with the resident, I agree w/resident's findings & plan - HPI HPI: 11/07/19 06:54 Pt has been working oput and lifting weight and he has left low back pain that is getting worse. He has a large knot in his low back. COmes with sciatica down his left leg. - Physicial Exam PE: 11/07/19 22:04 Agree with resident exam. Pt has minimnal to no flank pain, but it is an unclear picture, so we will get spiral CT - Medical Decision Making 11/07/19 22:05 CT scans ordered; pain meds given. Pt's results are pending. He will be signed out to the day ER team
[2019-11-07] MEDS ORDERED: SODIUM CHLORIDE 1,000 ML IV STA (05:35)
[2019-11-07] MEDS ORDERED: LIDOCAINE 5% TOPICAL PATCH TP ONE (05:36)
--- NOTE | 2019-11-07 05:39 | PDOC ---
History of Present Illness - General Chief Complaint: Back Pain Stated Complaint: BACK PAIN - History of Present Illness Initial Comments: 11/07/19 05:33 Mr. 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 Patient reports pain started after moving a box earlier yesterday. Patient says he attempted to take a flexeril at home w/out improvement. Called EMS when the pain had gotten worse. Denies any change in sensation or loss of bowel/bladder function. EMS gave toradol en route to ED. The patient denies chest pain, shortness of breath, headache and dizziness. Denies fever, chills, nausea, vomit, diarrhea and constipation. Denies dysuria, frequency, urgency and hematuria. Past History - Past Medical History Allergies/Adverse Reactions: Allergies Allergy/AdvReac Type Severity Reaction Status Date / Time Penicillins Allergy Unknown Verified 11/07/19 05:00 Home Medications: Ambulatory Orders Liraglutide [Victoza -] 1.2 mg SQ DAILY@0700 02/10/13 Quinapril HCl [Accupril -] 10 mg PO DAILY 02/10/13 metFORMIN HCL [Glucophage] 1,000 mg PO BID 02/10/13 Diltiazem HCl [Diltiazem 24Hr ER (Cd)] 180 mg PO AM 03/06/17 Metoprolol Succinate [Toprol Xl] 50 mg PO HS 03/06/17 Ranitidine HCl [Zantac] 150 mg PO BID 03/06/17 Tadalafil [Cialis] 5 mg PO DAILY 03/06/17 Apixaban [Eliquis -] 5 mg PO BID #60 tablet 03/09/17 Aspirin [ASA -] 325 mg PO DAILY 11/23/18 Cyanocobalamin (Vitamin B-12) [Vitamin B-12] 5,000 mcg PO DAILY 11/23/18 Rosuvastatin Calcium [Crestor] 20 mg PO DAILY 11/23/18 Anemia: No Asthma: No Cardiac Disorders: Yes (Paroxismal A-fib,) CVA: Yes (x2) COPD: No CHF: No Diabetes: Yes (NIDDM) HTN: Yes Hypercholesterolemia: Yes - Surgical History Abdominal Surgery: No Appendectomy: No Cardiac Surgery: No - Psycho Social/Smoking Cessation Hx Smoking Status: No Smoking History: Never smoked Have you smoked in the past 12 months: No Number of Cigarettes Smoked Daily: 0 If you are a former smoker, when did you quit?: 30 years ago Information on smoking cessation initiated: No Hx Alcohol Use: No Drug/Substance Use Hx: No Substance Use Type: None Review of Systems - Review of Systems Comments:: 11/07/19 05:40 GENERAL/CONSTITUTIONAL: No fever or chills. No weakness. HEAD, EYES, EARS, NOSE AND THROAT: No change in vision. No ear pain or discharge. No sore throat. CARDIOVASCULAR: No chest pain or shortness of breath RESPIRATORY: No cough, wheezing, or hemoptysis. GASTROINTESTINAL: No nausea, vomiting, diarrhea or constipation. GENITOURINARY: No dysuria, frequency, or change in urination. MUSCULOSKELETAL: +L sided lower back pain radiating to upper gluteal region as reported. No neck pain. SKIN: No rash NEUROLOGIC: No headache, vertigo, loss of consciousness, or change in strength/ sensation. ENDOCRINE: No increased thirst. No abnormal weight change HEMATOLOGIC/LYMPHATIC: No anemia, easy bleeding, or history of blood clots. ALLERGIC/IMMUNOLOGIC: No hives or skin allergy. *Physical Exam - Vital Signs Last Vital Signs Temp Pulse Resp BP Pulse Ox 98.6 F 89 20 156/89 99 11/07/19 05:01 11/07/19 05:01 11/07/19 05:01 11/07/19 05:01 11/07/19 05:01 - Physical Exam 11/07/19 05:41 GENERAL: +Patient appears in acute pain. Awake, alert, and fully oriented HEAD: No signs of trauma, normocephalic, atraumatic EYES: PERRLA, EOMI, sclera anicteric, conjunctiva clear ENT: Auricles normal inspection, hearing grossly normal, nares patent, oropharynx clear without exudates. Moist mucosa NECK: Normal ROM, supple, no lymphadenopathy, JVD, or masses LUNGS: No distress, speaks full sentences, clear to auscultation bilaterally HEART: Regular rate and rhythm, normal S1 and S2, no murmurs, rubs or gallops, peripheral pulses normal and equal bilaterally. ABDOMEN: +L lower back pain w/ palpation radiating down L leg. Soft, nontender abdomen, normoactive bowel sounds. No guarding, no rebound. No masses EXTREMITIES: Normal inspection, normal range of motion, no edema. No clubbing or cyanosis. NEUROLOGICAL: Cranial nerves II through XII grossly intact. Normal speech, normal gait, no focal sensorimotor deficits SKIN: Warm, Dry, normal turgor, no rashes or lesions noted. ED Treatment Course - LABORATORY CBC & Chemistry Diagram: 11/07/19 05:30 11/07/19 05:30 Medical Decision Making - Medical Decision Making 11/07/19 06:33 Mr. Beckwith is a 64 yo male w/ pmh as described who presents for evaluation of symptoms c/w muscular pain vs. sciatica vs. infections picture. Patient evaluated with labs for infectious causes as well as given medications for symptomatic relief. Upon repeat evaluation patient experienced little relief w/ medication; will evaluate w/ CT spiral for r/o kidney stone as well as L-spine for r/o spinal problems contributing to picture. 11/07/19 07:30 Patient signed out to Dr. Heard for further evaluation. Discharge - Discharge Information Problems reviewed: Yes Clinical Impression/Diagnosis: Back pain Qualifiers: Back pain location: back pain in unspecified location Chronicity: unspecified Back pain laterality: unspecified Qualified Code(s): M54.9 - Dorsalgia, unspecified - Follow up/Referral Referrals: Juventino Leigh MD [Primary Care Provider] - - Patient Discharge Instructions - Post Discharge Activity
[2019-11-07] MEDS ORDERED: METHOCARBAMOL 500 MG TABLET ONE (05:42)
[2019-11-07] MEDS ORDERED: ACETAMINOPHEN INJECTION 100 ML IVPB ONE (05:42)
[2019-11-07] MEDS ORDERED: LIDOCAINE 5% TOPICAL PATCH ONE (05:53)
[2019-11-07] MEDS ORDERED: morphine CARPU-JECT 2 MG/1 ML DISP.SYRIN IVPUSH ONE (06:47)
[2019-11-07 07:32] LABS: PH,URINE 5.5 (5.0-8.0); URINE APPEARANCE CLEAR; URINE BILIRUBIN NEGATIVE (NEGATIVE); URINE COLOR YELLOW; URINE GLUCOSE (UA) NEGATIVE (NEGATIVE); URINE KETONE TRACE (NEGATIVE); URINE LEUK ESTERASE NEGATIVE (NEGATIVE); URINE NITRITE NEGATIVE (NEGATIVE); URINE PROTEIN NEGATIVE (NEGATIVE); URINE UROBILINOGEN 0.2 mg/dL (0.2-1.0)
[2019-11-07 07:33] LABS: BASO % 0.6 % (0-2.0); EOS % 2.1 % (0-4.5); HEMATOCRIT 36.8 % (35.4-49); HEMOGLOBIN 12.3 GM/dL (11.7-16.9); LYMPH % 19.8 % (8-40); MCHC 33.5 g/dl (32.0-35.9); MEAN CELL VOLUME 92.7 fl (80-96); MEAN PLT VOLUME 8.4 fl (7.5-11.1); MONO % 5.3 % (3.8-10.2); NEUT % 72.2 % (42.8-82.8); PLATELET COUNT 181 K/MM3 (134-434); RBC 3.97 M/mm3 (4.00-5.60); RDW 13.7 % (11.9-15.9); WHITE BLOOD COUNT 7.3 K/mm3 (4.0-10.0)
--- NOTE | 2019-11-07 07:35 | PDOC ---
*Physical Exam - Vital Signs Last Vital Signs Temp Pulse Resp BP Pulse Ox 98.6 F 89 20 156/89 99 11/07/19 05:01 11/07/19 05:01 11/07/19 05:01 11/07/19 05:01 11/07/19 05:01 ED Treatment Course - LABORATORY CBC & Chemistry Diagram: 11/07/19 05:30 11/07/19 05:30 - ADDITIONAL ORDERS Additional order review: Laboratory Results 11/07/19 05:30 Urine Color Yellow Urine Appearance Clear Urine pH 5.5 D Ur Specific [place] 1.028 Urine Protein Negative Urine Glucose (UA) Negative Urine Ketones Trace H Urine Blood Negative Urine Nitrite Negative Urine Bilirubin Negative Urine Urobilinogen 0.2 Ur Leukocyte Esterase Negative - Medications Given in the ED: ED Medications Discontinued Medications Generic Name Dose Route Start Last Admin Trade Name Freq PRN Reason Stop Dose Admin Acetaminophen 1,000 mg 11/07/19 05:34 11/07/19 05:52 Ofirmev Injection - IVPB 11/07/19 05:35 1,000 mg ONCE ONE Administration Sodium Chloride 1,000 mls @ 1,000 mls/hr 11/07/19 05:35 11/07/19 05:52 Normal Saline - IV 11/07/19 06:34 1,000 mls/hr ASDIR STA Administration Lidocaine 1 patch 11/07/19 05:36 11/07/19 05:52 Lidoderm Patch - TP 11/07/19 05:37 1 patch ONCE ONE Administration Methocarbamol 500 mg 11/07/19 05:34 11/07/19 05:52 Robaxin - PO 11/07/19 05:35 500 mg ONCE ONE Administration Medical Decision Making - Medical Decision Making 11/07/19 09:32 Patient signed out by Dr. Rodriges ([id number]) 64 y/o male with lower back pain No SiSx concerning for cauda equina Lumbar CT pending A review of patient's course of evaluation shows CTAP with 3 mm lung nodule in RML Lumbar spine CT negative Will discharge home with Robaxin and instruction to f/u with PMD for lung nodule finding on CTAP. Discharge - Discharge Information Problems reviewed: Yes Clinical Impression/Diagnosis: Back pain Qualifiers: Back pain location: back pain in unspecified location Chronicity: unspecified Back pain laterality: unspecified Qualified Code(s): M54.9 - Dorsalgia, unspecified Condition: Good Disposition: HOME - Admission No - Additional Discharge Information Prescriptions: Methocarbamol [Robaxin-750] 750 mg PO BID #14 tablet - Follow up/Referral Referrals: Juventino Leigh MD [Primary Care Provider] - Mike Camilo MD [Staff Physician] - - Patient Discharge Instructions Additional Instructions: Please make an appointment to follow-up with a pain management doctor. We have provided a referral or you can call your insurance company for a list of doctors. Follow up with your primary care doctor in the next 3 days. We have provided you with a copy of your abdominal cat scan, please take this with you to a follow-up primary care appointment. Your care is not complete until you are evaluated by your primary care doctor. Return to the Emergency Department for any new/worsening/concerning symptoms. - Post Discharge Activity
[2019-11-07 08:00] LABS: ALBUMIN 3.7 g/dl (3.4-5.0); BILIRUBIN,TOTAL 0.4 mg/dL (0.2-1); BLOOD UREA NITROGEN 24.8 mg/dL (7-18); CALCIUM 8.6 mg/dL (8.5-10.1); POTASSIUM 4.1 mmol/L (3.5-5.1); TOT PROT 6.5 g/dl (6.4-8.2)
[2019-11-07] MEDS ORDERED: MORPHINE SULFATE 2 MG/ML VIAL ONE (08:07)
[2019-11-07 08:25] VITALS: BP 105/61; PULSE 62
[2019-11-07] MEDS ORDERED: LIDOCAINE PATCH REMOVAL MC SCH (22:00)
== END 2019-11-07 09:53 | disposition home or self-care (01) ==
LOC: JER 04:50
PROC: 3E033NZ Introduction of Analgesics, Hypnotics, Sedatives into Peripheral Vein, Percutaneous Approach (ICD-10-PCS; principal; 2019-11-07)
PROC: 3E033NZ Introduction of Analgesics, Hypnotics, Sedatives into Peripheral Vein, Percutaneous Approach (ICD-10-PCS; 2019-11-07)
DX: M54.42 Lumbago with sciatica, left side (principal); M62.830 Muscle spasm of back; I10 Essential (primary) hypertension; E78.5 Hyperlipidemia, unspecified; E78.00 Pure hypercholesterolemia, unspecified; E11.9 Type 2 diabetes mellitus without complications; Z79.84 Long term (current) use of oral hypoglycemic drugs; I48.0 Paroxysmal atrial fibrillation; Z79.01 Long term (current) use of anticoagulants; Z86.73 Personal history of transient ischemic attack (TIA), and cerebral infarction without residual deficits
CPT/HCPCS: 36415; 72131-TC; 74176-TC; 80053; 81003; 85025; 87086; 99284-25; J0131; J7030

== ENCOUNTER 2020-03-24 05:22 | Day surgery (SDC) | payer BC ==
[2020-03-21 16:15] VITALS: BMI 27.8
[2020-03-24 10:30] VITALS: TEMP 97.6
[2020-03-24 11:45] VITALS: BP 125/66; PULSE 87
--- NOTE | 2020-03-27 17:30 | PATH ---
Surgical Pathology Report Patient Name: BHARATHI INFANTE [facility]. Rec. #: [id number] /Age/Gender: 1955 (Age: 64) / M Account: [id number] Location: U-ENDOSCOPY Taken: 03/24/2020 Received: 03/24/2020 Reported: 03/27/2020 Physicians: Shiela Gonzalez M.D. Specimen(s) Received A: ESOPHAGUS B: GASTRIC FUNDUS POLYP C: DISTAL TRANVERSE COLON POLYP Clinical History Anemia Postoperative diagnosis: Gastric fundus polyp, transverse colon polyp, diverticulosis Final Diagnosis A. ESOPHAGUS, BIOPSY: GASTROESOPHAGEAL JUNCTIONAL MUCOSA WITH REFLUX ESOPHAGITIS. NEGATIVE FOR INTESTINAL METAPLASIA. B. GASTRIC FUNDUS POLYP, POLYPECTOMY GASTRIC MUCOSA WITH FUNDIC GLAND POLYP. IMMUNOSTAIN FOR H. PYLORI IS NEGATIVE. C. DISTAL TRANSVERSE COLON POLYP, POLYPECTOMY: TUBULAR ADENOMA. Electronically Signed Anali Zhu M.D. Gross Description A. Received in formalin, labeled "biopsy of esophagus" are 2 baron, irregular portions of soft tissue measuring 0.4 and 0.5 cm. in greatest dimension. The specimens are submitted in toto in one cassette. B. Received in formalin, labeled "gastric fundus polyp" are 2 baron, polypoid portions of soft tissue averaging 0.6 cm. in greatest dimension. The specimens are submitted in toto in one cassette. C. Received in formalin, labeled "distal transverse colon polyp" is a baron, irregular portion of soft tissue measuring 0.3 cm. in greatest dimension. The specimen is submitted in toto in one cassette. /03/24/2020 saudi/03/24/2020
== END 2020-03-24 11:34 | disposition home or self-care (01) ==
LOC: JASU-ENDO 05:22
PROVIDERS: ATTEND Internal Medicine Gastroenterology
PROC: 0DB48ZX Excision of Esophagogastric Junction, Via Natural or Artificial Opening Endoscopic, Diagnostic (ICD-10-PCS; 2020-03-24)
PROC: 0DB68ZX Excision of Stomach, Via Natural or Artificial Opening Endoscopic, Diagnostic (ICD-10-PCS; 2020-03-24)
PROC: 0DBL8ZX Excision of Transverse Colon, Via Natural or Artificial Opening Endoscopic, Diagnostic (ICD-10-PCS; principal; 2020-03-24 09:00)
DX: Z12.11 Encounter for screening for malignant neoplasm of colon (principal); Z86.010 Personal history of colon polyps; D12.3 Benign neoplasm of transverse colon; K64.8 Other hemorrhoids; K57.30 Diverticulosis of large intestine without perforation or abscess without bleeding; K60.3 Anal fistula; D64.9 Anemia, unspecified; K21.9 Gastro-esophageal reflux disease without esophagitis; K44.9 Diaphragmatic hernia without obstruction or gangrene; K31.7 Polyp of stomach and duodenum; I10 Essential (primary) hypertension; E11.9 Type 2 diabetes mellitus without complications; Z79.84 Long term (current) use of oral hypoglycemic drugs
CPT/HCPCS: 82962; 88305-TC; 88342-TC

== ENCOUNTER 2021-08-02 12:25 | Emergency (ER) | payer BC ==
[2021-08-02 12:31] VITALS: BP 149/80; PULSE 67; TEMP 97.9; BMI 32.8
== END 2021-08-02 13:23 | disposition home or self-care (01) ==
LOC: FER 12:25
DX: S20.212A Contusion of left front wall of thorax, initial encounter (principal); W22.8XXA Striking against or struck by other objects, initial encounter
CPT/HCPCS: 71101-TC-LT-FY; 99283-25

== ENCOUNTER 2021-09-20 14:00 | Emergency (ER) | payer OTHER, BC ==
[2021-09-20 14:17] VITALS: BP 134/72; PULSE 72; TEMP 97.8; BMI 29.7
== END 2021-09-20 16:16 | disposition home or self-care (01) ==
LOC: FER 14:00
DX: K40.90 Unilateral inguinal hernia, without obstruction or gangrene, not specified as recurrent (principal)
CPT/HCPCS: 74176-TC; 99284-25